=== PATIENT | female | born 1960 | race Caucasian/White ===

== ENCOUNTER 2016-12-30 19:12 | Inpatient (IN) | payer OTHER ==
[~2016-12-30] VITALS: Ht 157.5 cm; Wt 109.8 kg
--- NOTE | ~2016-12-30 | HC ---
[facility] [place] [address] CONSULTATION Name: GURDEEPTAVON Room #: 244-P ADM IN M.R.#: [id number] Admission: 12/30/16 Attend Phys: Eddie Ricks DO Discharge: Date of : 64 Report #: [id number] THIS REPORT FOR: //name// CC: RAYSA physician/PCP Eddie Ricks INDICATION FOR THE PROCEDURE: Low urine output. REASON FOR THE PRESENTATION: Abdominal pain and fluid distention. HISTORY OF PRESENT ILLNESS: A 56-year-old with extensive past medical history including psoriasis, who presented to the Emergency Room complaining of fluid retention. This has been going on with her for the last couple of months. I am not able to get the history from her as she is currently intubated. She has been trying to lose weight with aggressive regimen and low-carb diet. She reported to the Emergency Room that she had significant increase in the abdominal and the lower extremity edema. This has spread proximally. She had an initial evaluation that showed right-sided pleural effusion and a partially obstructing kidney stone. CT also showed a possible left breast mass. The patient then deteriorated and developed acute respiratory failure. Per the chart, she is not aware of any previous chronic kidney disease; however, looking at her kidney numbers when she presented to the Emergency Room, she did have an elevated creatinine with a baseline of around 1.7. Serological markers were completely not remarkable. She did have a urinary tract infection with Pseudomonas. ID is following the patient. Urology was consulted along with wound care. Unfortunately, the patient decompensated while attempting to do a nephrostomy on the right side. She became bradycardic, transcutaneous pacing was initiated. She was intubated and transferred to the ICU. Cardiac echo revealed severe pulmonary hypertension. Creatinine had been rising up to 2.1. I am consulted to manage her acute kidney injury with her anuria. PAST MEDICAL HISTORY: 1. Psoriasis. 2. Pleural effusion. 3. CKD. 4. Status post cholecystectomy. 5. . ALLERGIES: No known drug allergies. SOCIAL HISTORY: No drug or alcohol abuse. FAMILY HISTORY: Significant for heart problem, liver and skin cancer. REVIEW OF SYSTEMS: Unobtainable given the patient's mental status. CURRENT MEDICATIONS: The patient is currently maintained on the following: [address] [address] CONSULTATION Name: TAVON MACKENZIE Arthur Room #: [facility] IN [facility].#: [id number] Admission: 12/30/16 Attend Phys: Eddie Ricks DO Discharge: Date of : 64 Report #: [id number] 1. Amiodarone. 2. Aspirin. 3. Carvedilol. 4. Loratadine. 5. Meropenem. 6. Normal saline. 7. Vancomycin. 8. Methotrexate PHYSICAL EXAMINATION: GENERAL: Intubated. VITAL SIGNS: Blood pressure currently 108/53. She did have extreme hypotensive episodes in the last 48 hours. HEAD AND NECK: ET tube in place. CHEST: Decreased air entry bilaterally. CARDIOVASCULAR: No rub. ABDOMEN: Extensive psoriatic rash and abdominal wall edema. LOWER EXTREMITIES: Extensive psoriatic rash and lower extremity edema. LABORATORY VALUES: Reviewed. White blood cell count is within normal. The pH is normalized; however, she did have severe CO2 narcosis and CO2 retention on the 18. Creatinine is up to 2.1. Serological markers are all negative. ASSESSMENT, IMPRESSION AND PLAN: 1. Acute kidney injury. 2. Severe pulmonary hypertension. 3. Heart block. 4. Hypoperfusion. 5. Respiratory failure. 6. Psoriasis. 7. Obstructing stone. 8. Urinary tract infection. 9. Fluid overload. 10. Elevated liver enzymes. 11. Hypoalbuminemia. 12. Status post chest tube insertion. 13. Unfortunately, this is a very difficult situation given her comorbid conditions. I will attempt Lasix x 1. Volume seems to be optimized; however, she ran into hypotensive episodes yesterday, which contributed to an acute tubular necrosis. 14. Given her heart block, I would be cautious with the beta meseret and with the amiodarone and I will defer the management of those issues to her color artist. 15. I am a little concerned about the obstructing stone in the face of the urinary tract infection. Cultures were obtained and she is currently covered with appropriate antibiotic; however, this stone needs to be addressed as soon [address] [address] CONSULTATION Name: TAVON MACKENZIE Arthur Room #: 244-P [facility] IN M.R.#: [id number] Admission: 12/30/16 Attend Phys: Eddie Ricks DO Discharge: Date of : 64 Report #: [id number] as possible with reattempting of percutaneous nephrostomy tube versus surgical urological intervention. We will discuss with the team members. <ELECTRONICALLY SIGNED> By: Shannan Alvarado MD 01/19/17 1126 [id number] [id number] Shannan Alvarado MD /nt
--- NOTE | ~2016-12-30 | EKG ---
[address] [place] [address] ELECTROCARDIOGRAM REPORT Name: TAVON MACKENZIE Room #: 244- ADM IN M.R.#: [id number] Admission: 12/30/16 Attend Phys: Eddie Ricks DO Discharge: Date of : 64 Report #: [id number] THIS REPORT FOR: //name// [facility] Test Date: 2017-01-12 Test Time: 13:36:02 Pat Name: TAVON MACKENZIE Department: Room: 244 Gender: F Networking Administrator: MECHE : 1960 Requested By: Fabricio Viveros Order Number: [id number] MD: Fabricio Viveros Measurements Intervals [place] Rate: 73 P: 28 PA: 185 QRS: -14 QRSD: 156 T: 26 QT: 460 QTc: 507 Interpretive Statements Sinus rhythm Right bundle branch block Compared to ECG 12/30/2016 20:05:46 Left posterior fascicular block no longer present Inferior Q waves no longer present Q waves no longer present Electronically Signed On 01-12-2017 16:18:03 CDT by Fabricio Viveros [email or web address] <ELECTRONICALLY SIGNED> By: Fabricio Viveros MD 01/12/17 1618 1336 1336 Fabricio Viveros MD /EPI
--- NOTE | ~2016-12-30 | HC ---
[facility] [place] [address] CONSULTATION Name: GURDEEPVIKYTAVON Arthur Room #: 244-P ADM IN M.R.#: [id number] Admission: 12/30/16 Attend Phys: Eddie Ricks DO Discharge: Date of : 64 Report #: [id number] THIS REPORT FOR: //name// CC: RAYSA physician/PCP Eddie Ricks DATE OF SERVICE: 01/08/2017 HISTORY OF PRESENT ILLNESS: A 56-year-old female admitted with acute congestive heart failure exacerbation, anasarca, was noted to have acute renal failure, and pulmonary hypertension. She developed hypoxemic respiratory failure, was noted to have a large right pleural effusion and underwent thoracentesis. She has a right lower lobe infiltrate with atelectasis. She does have morbid obesity. She also has a right renal calculus with mild nephrosis with Nephrology involved. She has been diagnosed with urinary tract infection. She has lymphadenopathy of the mediastinum, left axilla. She has significant generalized weakness and debilitation with medical complexity. We are seeing her in rehabilitation medicine consultation. PAST MEDICAL HISTORY: Includes morbid obesity, asthma as a child, psoriasis. MEDICATIONS: Please see the full medication listing. HABITS: No history of tobacco or alcohol abuse. SOCIAL HISTORY: Lives in a house with her significant other, did not utilize any assistive device, 3 steps in, and does not have a primary care physician. REVIEW OF SYSTEMS: She complains of generalized weakness. No current complaints of chest pain, shortness of breath or abdominal discomfort. She has been needing high oxygen 15 liters per minute nasal cannula. PHYSICAL EXAMINATION: GENERAL: A 56-year-old morbidly obese female in no obvious distress. VITAL SIGNS: Last recorded temperature is 36.8, pulse 74, respirations 20, blood pressure 118/51. NEUROLOGIC: The patient is alert, follows basic 1 step commands. She is on high dose O2, considerable obesity with a large pendulous abdomen. EXTREMITIES: Functional range of motion of the upper and lower extremities with some limited patient due to her pannus. Strength is probably a grade 3+/5. DTRs are 1. She has been needing assistance with functional mobility. She has had some weeping of small amount of serous fluid from the left lower extremity. ASSESSMENT: A 56-year-old female with the following problem list: 1. Medical complexity with generalized debilitation. 2. Acute congestive heart failure exacerbation with right heart failure. [address] [address] CONSULTATION Name: TAVON MACKENZIE Arthur Room #: 244-P [facility] IN [facility]#: [id number] Admission: 12/30/16 Attend Phys: Eddie Ricks DO Discharge: Date of : 64 Report #: [id number] 3. Pulmonary hypertension. 4. Hypercapnic and hypoxemic respiratory failure. She is status post thoracentesis, noted to be of 900 mL. 5. Anasarca. 6. Right renal calculus with Urology involved. There is evidence of mild hydronephrosis. 7. Morbid obesity. 8. Lymphadenopathy of the mediastinum. 9. Morbid obesity. PLAN: Agree with therapy orders as written. Therapy evaluations are underway. We will be glad to follow along with you regarding rehab therapy needs. She may be a candidate for LTAC stay. Insurance issues will need to be worked out as well. We will be glad to follow along with you. <ELECTRONICALLY SIGNED> By: Chino Hernández MD 01/15/17 1105 00 10 Chino Hernández MD /PMT
--- NOTE | ~2016-12-30 | HC ---
[facility] [place] [address] CONSULTATION Name: TAVON MACKENZIE Arthur Room #: 241-P ADM IN M.R.#: [id number] Admission: 12/30/16 Attend Phys: Eddie Ricks DO Discharge: Date of : 64 Report #: [id number] THIS REPORT FOR: //name// CC: [facility] physician/PCP Eddie Islas MD DATE OF SERVICE: 01/05/2017 REFERRING PROVIDER: Bam Islas MD. REASON FOR CONSULTATION: Hypoxemic respiratory failure. CHIEF COMPLAINT: Anasarca. HISTORY OF PRESENT ILLNESS: Our group was asked to evaluate the patient in consultation while hospitalized at [facility], a 56-year-old woman without any noted past pulmonary history, admitted on the of this month with complaints of anasarca, states she had been in her usual state of health, had been doing aggressive weight loss with a low carbohydrate diet, noted significant weight loss and then stopped losing weight then started gaining weight, noted some increasing abdominal edema, lower extremity edema. She states may be over the last 1-2 weeks, however, had significant anasarca and has been on diuretics since admission and workup has included an echocardiogram showing normal LV function, but significant pulmonary hypertension. Also, noted on workup to have only minimal amount of ascites on CT abdomen and pelvis, questionable nephrolithiasis. Ventilation perfusion scan showed matched defects in the right lower lung. Additional workup included a CT scan of the chest, which showed significant right lower lung atelectasis, right pleural effusion and small left pleural effusion, thyroid mass as well as possible axillary lymphadenopathy, possible left breast mass and some mediastinal adenopathy and fatty liver. The patient subsequently has been hypoxemic despite aggressive diuresis since admission and we were asked to evaluate further, currently on 15 liters satting 92% on my evaluation. The patient denies any obstructive sleep apnea, no history of daytime somnolence or snoring. No prior tobacco abuse. 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 Currently unemployed. She does have a history of psoriasis for which she has not seen a physician several years, had been doing xtkr-krd-dndxbck topical therapy. ALLERGIES: None known. PAST MEDICAL HISTORY: Psoriasis. OUTPATIENT MEDICATIONS: None. [address] [address] CONSULTATION Name: GURDEEPTAVON Gibson Room #: 241-P [facility] IN ..#: [id number] Admission: 12/30/16 Attend Phys: Eddie Ricks DO Discharge: Date of : 64 Report #: [id number] PAST SURGICAL HISTORY: Includes , cholecystectomy. SOCIAL HISTORY: Nonsmoker, nondrinker, no significant environmental exposures. Lives with significant other. FAMILY HISTORY: Significant for a mother who had breast cancer. REVIEW OF SYSTEMS: CONSTITUTIONAL: No fevers or chills. ENT: No upper respiratory congestion, rhinorrhea or dysphagia. CARDIOVASCULAR: No chest pains or palpitations, known anasarca. GASTROINTESTINAL: No nausea, vomiting, diarrhea, constipation or abdominal pain. GENITOURINARY: No dysuria, no frequency or hematuria. INTEGUMENT: Psoriasis as noted. MUSCULOSKELETAL: Some lower extremity edema. PHYSICAL EXAMINATION: VITAL SIGNS: Afebrile, pulse 70s, respiratory rate 20, blood pressure 135/70, oxygen saturation 97% on 15 L nasal cannula. GENERAL: This is a morbidly obese, middle-aged woman with obvious anasarca, somewhat somnolent. HEENT: Clear oropharynx. NECK: Supple, no lymphadenopathy. LUNGS: Diminished on the right, but clear otherwise. CARDIOVASCULAR: Regular. No murmurs noted. ABDOMEN: Obese, extensive abdominal wall edema noted, odor coming from intertriginous areas with some erythema in the intertriginous areas. EXTREMITIES: What appears to be chronic edema. INTEGUMENT: Extensive rash consistent with history of psoriasis. LABORATORY DATA: White blood cell count 9000, hemoglobin 13, hematocrit 40, platelet count 282. Sodium 138, potassium 4.8, chloride 90, bicarbonate 39, BUN 31, creatinine 1.7, glucose 125. INR is 1.1. Urinalysis with trace blood, trace leukocyte esterase. Culture with 10,000 colony forming units of Pseudomonas. IMPRESSION: 1. Anasarca of unclear etiology. 2. Severe pulmonary hypertension with findings of right heart failure. 3. Lymphadenopathy in the mediastinum and in the left axilla, unclear etiology. 4. History of psoriasis. 5. Morbid obesity. 6. Possible obstructive sleep apnea. 7. Worsening acute hypoxemic respiratory failure concerning for shunt given [address] [address] CONSULTATION Name: TAVON MACKENZIE Arthur Room #: 241-P [facility] IN ..#: [id number] Admission: 12/30/16 Attend Phys: Eddie Ricks DO Discharge: Date of : 64 Report #: [id number] findings on echo of pulmonary hypertension. RECOMMENDATIONS: 1. Continue with diuresis as tolerated. 2. Check bubble study to see if any significant intracardiac shunt related to pulmonary hypertension. 3. Concern for connective tissue disease related to pulmonary hypertension and/or sleep apnea and/or obesity hypoventilation and/or thyroid related disease or related to possible malignant process. 4. Pleural effusion. 5. Thyroid mass. SUGGESTIONS: 1. Check TSH. 2. Right thoracentesis. 3. Consider nocturnal BiPAP therapy. 4. Continuous oximetry. 5. Transfer to high level care, critical care telemetry. 6. Connective tissue screen, although may be unhelpful given known history of autoimmune disease with the psoriasis. 7. Further workup may include right heart catheterization, may benefit from transfer to the [facility] for further management of severe pulmonary hypertension or right heart failure. 8. Check arterial blood gas. 9. Ultrasound of left breast. 10. Venous Dopplers of lower extremities, although may be difficult due to her significant obesity and edema. 11. We will follow along with you. Thank you for requesting our suggestions. <ELECTRONICALLY SIGNED> By: John Murrell MD 01/28/17 1635 191 John Murrell MD /nt
--- NOTE | ~2016-12-30 | 2DMMODE ---
[address] [address] 2 D/M-MODE ECHOCARDIOGRAM Name: TAVON MACKENZIE Arthur Room #: 353-P [facility] IN M.R.#: [id number] Admission: 12/30/16 Attend Phys: Eddie Ricks, Discharge: Date of : 64 Date of Service: 01/07/17 1534 Report #: [id number] THIS REPORT FOR: //name// APPROVED REPORT Study performed: 01/07/2017 12:07:40 EXAM: Limited 2D, Doppler, and color-flow Echocardiogram Patient Location: Bedside Room #: [facility] Status: routine BSA: 2.43 BP: 104/68 mmHg Other Information Study Quality: Technically Difficult Technically limited study due to body habitus, inability to position patient. Indications Dyspnea Echo Enhancing Agent Indication: Rule out Shunt Agent(s) / Amount(s) Used: Agitated Saline 8 cc Aortic Valve AoV Peak Alexander.: 1.81 m/s AO Peak Gr.: 13.10 mmHg Tricuspid Valve TR Peak Alexander.: 3.76 m/s TR Peak Gr.: 56.47 mmHg Left Ventricle The overall left ventricular systolic function appears normal. Atria Injection of bubbles documented no interatrial shunt. Mitral Valve The mitral valve is normal in structure. Mild mitral regurgitation. [address] [place] [address] 2 D/M-MODE ECHOCARDIOGRAM Name: TAVON MACKENZIE Room #: 353-P ADM IN M.R.#: [id number] Admission: 12/30/16 Attend Phys: Eddie Ricks, Discharge: Date of : 64 Date of Service: 01/07/174 Report #: [id number] Tricuspid Valve The tricuspid valve is normal in structure. Moderate to severe tricuspid regurgitation. Pericardium There is no pericardial effusion. <Conclusion> The overall left ventricular systolic function appears normal. Injection of bubbles documented no interatrial shunt. The tricuspid valve is normal in structure. Moderate to severe tricuspid regurgitation. The mitral valve is normal in structure. Mild mitral regurgitation. There is no pericardial effusion. <ELECTRONICALLY SIGNED> By: Fran Basilio MD 01/07/17 1534 1534 33 Fran Basilio MD /INF
--- NOTE | ~2016-12-30 | HC ---
[facility] [place] [address] CONSULTATION Name: GURDEEPTAVON Arthur Room #: 412-P ADM IN M.R.#: [id number] Admission: 12/30/16 Attend Phys: Eddie Ricks DO Discharge: Date of : 64 Report #: [id number] THIS REPORT FOR: //name// CC: RAYSA physician/PCP Eddie Ricks DATE OF SERVICE: 12/31/2016 CHIEF COMPLAINT: Psoriasis. HISTORY OF PRESENT ILLNESS: This is a 56-year-old female patient who was admitted from the emergency department with abdominal fluid retention. She apparently has been gaining weight for the last month, having some difficulty standing as well as some shortness of breath. She also has a history of psoriasis, which has recently been exacerbated and she has not had health insurance and therefore has not had resources for any medications. She had taken Enbrel in the past with good control, but this was over 10 years ago. PAST MEDICAL HISTORY: Positive for psoriasis as well as a previous cholecystectomy. No known history of coronary artery disease. The patient has a history of asthma as a child. SOCIAL HISTORY: Negative for alcohol or tobacco use. She is not . ALLERGIES: None. REVIEW OF SYSTEMS: CONSTITUTIONAL: The patient denies fever or chills, has had some recent weight gain. ENT: The patient denies earache, nasal drainage, or sore throat. CARDIOVASCULAR: The patient denies chest pain or palpitations. She does have some orthopnea. GASTROINTESTINAL: The patient denies nausea, vomiting, diarrhea, or abdominal pain. ORTHOPEDIC: The patient does note the rash and plaque formation as well as pain and drainage from both lower extremities, more on the left than on the right. Other systems are negative. PHYSICAL EXAMINATION: VITAL SIGNS: At this time include pulse rate of 83, respiratory rate of 18, blood pressure 100/47, and temperature 97.8. GENERAL: This is a chronically ill-appearing female patient who appears to be in minimal distress. HEENT: Head normocephalic. Nose and throat are clear. NECK: Supple. [facility] [address] [place] [address] CONSULTATION Name: TAVON MACKENZIE Room #: 412-P [facility] IN M.R.#: [id number] Admission: 12/30/16 Attend Phys: Eddie Ricks DO Discharge: Date of : 64 Report #: [id number] LUNGS: Clear. ABDOMEN: Soft, obese, nontender. EXTREMITIES: Lower extremities demonstrate easily palpable distal pulses. She has psoriatic type rash on both legs as well as her arms and part of her chest wall. She has thick plaques and some drainage and a little bit of odor especially on the left lower extremity. CLINICAL IMPRESSION: 1. Psoriasis with exacerbation. 2. Congestive heart failure. 3. Morbidly obesity. 4. Chronic kidney disease. RECOMMENDATIONS: At this point in time, we will recommend topical betamethasone to the affected areas twice daily. She will be started on methotrexate and I reviewed this with Dr. Ricks who ordered the methotrexate to start today and then once a week thereafter. She may benefit from a biologic, although this may not be within the range of her affordability at present. All questions have been answered. I appreciate having been asked to see her in consultation. <ELECTRONICALLY SIGNED> By: Christopher Mckeon MD 01/02/17 1113 1822 35 Christopher Mckeon MD /nt
--- NOTE | ~2016-12-30 | HC ---
[facility] [place] [address] CONSULTATION Name: TAVON MACKENZIE Arthur Room #: 412-P ADM IN M.R.#: [id number] Admission: 12/30/16 Attend Phys: Eddie Ricks DO Discharge: Date of : 64 Report #: [id number] THIS REPORT FOR: //name// CC: [facility] physician/PCP Eddie Ricks CHIEF COMPLAINT: Right renal calculi. HISTORY OF PRESENT ILLNESS: The patient is a very pleasant 56-year-old woman who is being seen today at the request of Dr. Ricks for evaluation and management of renal calculi. Specifically, she was admitted with an exacerbation of CHF. She denies history of renal calculi and she is having no flank pain. Additional history indicates that she had a kidney stone 30 years ago while she was and she passed the stone. ALLERGIES: None. MEDICATIONS: Refer to the med reconciliation sheet. ILLNESSES: Include congestive heart failure, anasarca, chronic kidney disease, morbid obesity, right pleural effusion, and psoriasis. SOCIAL HISTORY: Nonsmoker. REVIEW OF SYSTEMS: She denies shortness of breath or chest pain. PHYSICAL EXAMINATION: GENERAL: She is comfortable woman lying in bed. VITAL SIGNS: Temperature is 36.7, pulse 81, respirations 18, blood pressure 116/53. ABDOMEN: Obese. LABORATORY DATA: White count 7.4, hemoglobin 12.6, hematocrit 39.4, platelets 302,000. Sodium is 141, potassium 3.9, chloride 100, CO2 36, BUN 16, creatinine 1.6. Urine is clear yellow, specific gravity is 1.010, pH is 5, negative protein, ketones, nitrites, trace leukocyte esterase. CT scan shows surgically absent gallbladder. There are three clusters of of the right kidney measuring 15 mm and right UPJ stone with mild right-sided pelvic caliectasis. IMPRESSION: Right renal calculi. She is not symptomatic at the present time, although there is mild caliectasis on the right side. PLAN: We will obtain a Lasix renal scan. I explained she may require [facility] [address] [place] [address] CONSULTATION Name: GURDEEPTAVON Room #: 412-P [facility] IN ..#: [id number] Admission: 12/30/16 Attend Phys: Eddie Ricks DO Discharge: Date of : 64 Report #: [id number] intervention, but the acuity of this intervention will be based on the renal scan findings. <ELECTRONICALLY SIGNED> By: Chino Pratt MD 01/02/17 0828 0645 0731 Chino Pratt MD /nt
--- NOTE | ~2016-12-30 | P ---
[facility] [place] [address] PROCEDURE REPORT Name: GURDEEPTAVON Arthur Room #: 362-P [facility] IN M.R.#: [id number] Admission: 12/30/16 Attend Phys: Eddie Ricks DO Discharge: 02/10/17 Date of : 64 Report #: [id number] THIS REPORT FOR: //name// CC: RAYSA physician/PCP Eddie Ricks DATE OF SERVICE: 01/24/2017 PROCEDURE: Fiberoptic bronchoscopy with bronchioalveolar washings. INDICATION: Right main stem mucous plug. PROCEDURE NOTATION: Given the patient's high risk for respiratory decompensation and need for intubation, she was transferred to the ICU to room 241 for additional assistance with care pre and postprocedure. The patient did not want to be intubated if it came to that. The patient was agreeable to proceed with fiberoptic bronchoscopy. X-ray revealed new findings of complete right lung atelectasis, likely due to mucous plug. She received 4% lidocaine nebulized and anesthetized the upper respiratory tract. Once accomplished, she received conscious sedation. A total 4 mg of Versed were titrated during the procedure to provide adequate sedation. Once complete, bronchoscope was advanced through the oral bite block while the patient was on high flow oxygen including 15 liters nasal cannula and 100% face shield. Once vocal cords were visualized, lidocaine 1% was instilled in the vocal cords to provide topical anesthesia. Bronchoscope was then passed in the trachea, 1% lidocaine was instilled in the tracheobronchial tree bilaterally to provide topical anesthesia. Once complete, the airways were surveyed. FINDINGS: Briefly airways were surveyed due to her decompensation. Mainstem, lobar, segmental and subsegmental bronchi were explored. Left-sided structures appeared patent with no significant anatomic variation or significant disease. Right-sided structures revealed complete mucous plugging. This was purged and aspirated including need to remove the bronchoscope on 2 occasions to purge the bronchoscope from mucous plugging within the bronchoscope channel. Several 20 mL aliquots of saline were utilized to flush and aspirate extensive inspissated mucus from the airway. Once complete, airways were patent with no significant disease. The patient was placed on BiPAP post-procedure. No other noted complications. Low oxygen saturation 85% throughout the procedure. The patient placed on BiPAP and noted improvement in x-ray post-procedure. Suggest continue ICU care and airway clearance. <ELECTRONICALLY SIGNED> By: John Murrell MD 02/11/17 1053 1514 0410 John Murrell MD /nt
--- NOTE | ~2016-12-30 | CNG ---
[facility] [place] [address] CYTO-NONGYN REPORT PROCEDURE Name: KARIN SMITH Room #: 238-P ADM IN M.R.#: [id number] Admission: 12/30/16 Date of : 64 Discharge: Report #: [id number] Path Case #: [id number] CYTOPATHOLOGY REPORT COLLECTION DATE: 01/09/2017 RECEIVED DATE: 01/09/2017 SUBMITTING PHYS: Dr. Eddie Ricks OTHER PHYS: Dr. Bam Islas CLINICAL HISTORY: CHF, Anasarca SPECIMEN(S) RECEIVED: A.Pleural fluid, right * * * * * * * * * * * * FINAL DIAGNOSIS: A. Right Pleural fluid: - No malignant cells identified. Reactive mesothelial cells along with moderate acute and chronic inflammation. PATHOLOGIST: Maggy North M.D. REPORT ELECTRONICALLY SIGNED BY: Maggy North M.D. DATE/TIME: 01/10/2017 16:15 * * * * * * * * * * * * GROSS PATHOLOGY: A. Pleural fluid, Right: The specimen is submitted unfixed, labeled "Karin Smith". Received by the Cytology Department is 32 mL of cloudy red fluid. One ThinPrep slide and a formalin fixed cell block were prepared. (lg10.) CHIEF TECHNOLOGIST(S): BHUMI Faye([facility]) INITIAL CPT CODE(S): A; 61966, 77037 Professional services performed by [facility] at [facility] [address], [place] [address] Technical services performed by [facility] at [address] [place] [address]., [address], [place] [address]. [facility] [address] [place] [address], [facility] [address] [place] [address] PHONE: [phone] [facility] [address] [place] [address] CYTO-NONGYN REPORT PROCEDURE Name: KARIN SMITH Room #: 238-P [facility] IN ..#: [id number] Admission: 12/30/16 Date of : 64 Discharge: Report #: [id number] Path Case #: [id number] DIRECTOR: Donte Cotton M.D. * * * END OF REPORT * * *
--- NOTE | ~2016-12-30 | EKG ---
[address] [place] [place] [address] ELECTROCARDIOGRAM REPORT Name: TAVON MACKENZIE Room #: 412-P [facility] IN .R.#: [id number] Admission: 12/30/16 Attend Phys: Eddie Ricks DO Discharge: Date of : 64 Report #: [id number] THIS REPORT FOR: //name// [facility] ED Test Date: 2016-12-30 Test Time: 20:05:46 Pat Name: TAVON MACKENZIE Department: Room: [facility] Gender: F [employer]off Truck Driver: DERREK : 1960 Requested By: Jarad Canas Order Number: [id number] MD: Malik Simms Measurements Intervals [place] Rate: 93 P: 40 [place]: 177 QRS: 118 QRSD: 143 T: 2 QT: 410 QTc: 511 Interpretive Statements Sinus rhythm Probable left atrial enlargement RBBB and LPFB Abnormal inferior Q waves No previous ECG available for comparison Electronically Signed On 12-31-2016 7:45:58 CDT by Malik Simms [email or web address] <ELECTRONICALLY SIGNED> By: Malik Simms MD, [facility] 12/31/16 0745 04 04 Malik iSmms MD, FACC /EPI
--- NOTE | ~2016-12-30 | 2DMMODE ---
[facility] [place] [address] 2 D/M-MODE ECHOCARDIOGRAM Name: GURDEEPTAVON Room #: 412-P [facility] IN .R.#: [id number] Admission: 12/30/16 Attend Phys: Eddie Ricks, Discharge: Date of : 64 Date of Service: 12/31/16 1323 Report #: [id number] THIS REPORT FOR: //name// APPROVED REPORT Study performed: 12/31/2016 11:40:03 EXAM: Comprehensive 2D, Doppler, and color-flow Echocardiogram Patient Location: Echo lab Room #: [facility] Status: routine BSA: 2.43 HR: 100 bpm BP: 107/54 mmHg Rhythm: Tachycardia Other Information Study Quality: Adequate Technically limited study due to morbid obesity. Indications Fluid retention, CHF. Echo Enhancing Agent Indication: Endocardial border delineation Agent(s) / Amount(s) Used: Optison 3 cc 2D Dimensions LVEF(%): 52.97 (>50%) IVSd: 12.25 (7-11mm) LVOT Diam: 22.21 (18-24mm) LVDd: 44.72 mm PWd: 11.63 (7-11mm) Ascending Ao: 32.54 (22-36mm) LVDs: 32.60 (25-40mm) Aortic Root: 28.64 mm Leahy's LVEF: 52.97 % Volumes Left Atrial Volume (Systole) Single Plane 4CH: 49.51 mL Single Plane 2CH: 57.44 mL LA ESV Index: 24.00 mL/m2 Aortic Valve AoV Peak Alexander.: 1.92 m/s AO Peak Gr.: 14.80 mmHg LVOT Max P.24 mmHg LVOT Max V: 1.25 m/s [facility] [place] [place] [address] 2 D/M-MODE ECHOCARDIOGRAM Name: TAVON MACKENZIE Room #: [facility] IN ..#: [id number] Admission: 12/30/16 Attend Phys: Eddie Ricks, Discharge: Date of : 64 Date of Service: 12/31/16 1323 Report #: [id number] JESSICA Vmax: 2.51 cm2 Mitral Valve E/A Ratio: 0.7 MV Decel. Time: 110.37 ms MV E Max Alexander.: 1.15 m/s MV A Alexander.: 1.61 m/s MV PHT: 32.01 ms IVRT: 78.43 ms Pulmonary Valve PV Peak Alexander.: 1.40 m/s PV Peak Gr.: 7.81 mmHg Tricuspid Valve TR Peak Alexander.: 3.91 m/s RAP Estimate: 15.00 mmHg TR Peak Gr.: 61.27 mmHg PA Pressure: 76.00 mmHg Left Ventricle The left ventricle is normal size. There is normal LV segmental wall motion. Mild concentric left ventricular hypertrophy. Left ventricular systolic function is normal. LVEF is 55-60%. Mild diastolic dysfunction is present (impaired relaxation pattern). Right Ventricle Right ventricle is dilated. Unable to assess function due to poor image quality. Atria Left atrium is dilated. Right atrium is dilated. Aortic Valve Aortic valve is mildly calcified. No aortic regurgitation is present. There is no aortic valvular stenosis. Mitral Valve The mitral valve is normal in structure. Mild mitral regurgitation. Tricuspid Valve Moderate to severe tricuspid regurgitation. Severe pulmonary hypertension with an estimated PAP of 76mmHg. Pulmonic Valve The pulmonary valve is normal in structure. [facility] [address] [place] [address] 2 D/M-MODE ECHOCARDIOGRAM Name: TAVON MACKENZIE Arthur Room #: 412-P [facility] IN ..#: [id number] Admission: 12/30/16 Attend Phys: Eddie Ricks, Discharge: Date of : 64 Date of Service: 12/31/16 1323 Report #: [id number] Great Vessels The aortic root is normal in size. The ascending aorta is normal in size. IVC is dilated and collapses <50% with inspiration. Pericardium There is no pericardial effusion. Right pleural effusion noted. <Conclusion> The left ventricle is normal size. Mild concentric left ventricular hypertrophy. LVEF is 55-60%. Mild diastolic dysfunction is present (impaired relaxation pattern). Right ventricle is dilated. Left atrium is dilated. Right atrium is dilated. Aortic valve is mildly calcified. There is no aortic valvular stenosis. Mild mitral regurgitation. Moderate to severe tricuspid regurgitation. Severe pulmonary hypertension with an estimated PAP of 76mmHg. IVC is dilated and collapses <50% with inspiration. There is no pericardial effusion. <ELECTRONICALLY SIGNED> By: Adrian Ludwig MD, FACC 12/31/16 1323 22 22 Adrian Ludwig MD, FACC /INF
--- NOTE | ~2016-12-30 | 2DMMODE ---
[facility] [address] [place] [address] 2 D/M-MODE ECHOCARDIOGRAM Name: GURDEEPTAVON A Room #: 362-P [facility] IN .R.#: [id number] Admission: 12/30/16 Attend Phys: Eddie Ricks, Discharge: Date of : 64 Date of Service: 02/07/17 1054 Report #: [id number] THIS REPORT FOR: //name// APPROVED REPORT Study performed: 02/07/2017 09:34:40 EXAM: Limited 2D, Doppler, and color-flow Echocardiogram with contrast Patient Location: Bedside Room #: [facility] Status: routine BSA: 2.07 BP: 140/89 mmHg Other Information Study Quality: Technically Difficult/Technically Limited Technically limited study due to body habitus, uncooperative patient, inability to position patient. Indications Pulmonary Hypertension Re-evaluate pulmonary HTN. Abbreviated echo on 01/07/17 and complete echo on 12/31/06. 2D Dimensions IVC: 24.00 mm Aortic Valve AoV Peak Alexander.: 1.43 m/s AO Peak Gr.: 8.20 mmHg LVOT Max P.94 mmHg LVOT Max V: 0.99 m/s Mitral Valve E/A Ratio: 0.5 MV Decel. Time: 155.89 ms MV E Max Alexander.: 0.70 m/s MV A Alexander.: 1.28 m/s MV PHT: 45.21 ms Pulmonary Valve PV Peak Alexander.: 1.49 m/s PV Peak Gr.: 8.84 mmHg Tricuspid Valve TR Peak Alexander.: 3.42 m/s RAP Estimate: 10.00 mmHg [facility] [address] [place] [address] 2 D/M-MODE ECHOCARDIOGRAM Name: TAVON MACKENZIE Room #: 362-P ADM IN [facility]#: [id number] Admission: 12/30/16 Attend Phys: Eddie Ricks, Discharge: Date of : 64 Date of Service: 02/07/17 1054 Report #: [id number] TR Peak Gr.: 46.92 mmHg PA Pressure: 57.00 mmHg Left Ventricle Left ventricle is grossly normal size. The overall left ventricular systolic function appears normal. LVEF is 60-65%. Right Ventricle Right ventricle is not well visualized. Atria Left atrium is dilated. Right atrium is not well visualized. Aortic Valve The aortic valve is normal in structure. No aortic regurgitation is noted. There is no aortic valvular stenosis per doppler. Mitral Valve The mitral valve is normal in structure. Mild to moderate mitral regurgitation. No evidence of mitral valve stenosis. Tricuspid Valve The tricuspid valve is normal in structure. Mild to moderate tricuspid regurgitation. PAP is estimated at 57 mmHg. Pulmonic Valve Pulmonic valve is not well visualized. Mild pulmonic regurgitation is noted per doppler. Trace pulmonic regurgitation. Trace to mild pulmonic regurgitation. Mild pulmonic regurgitation. Great Vessels IVC is dilated and collapses >50% with normal respirations. Pericardium No hemodynamically significant pericardial effusion. <Conclusion> Left ventricle is grossly normal size. LVEF is 60-65%. Right ventricle is not well visualized. Left atrium is dilated. Right atrium is not well visualized. The aortic valve is normal in structure. [facility] [address] [place] [address] 2 D/M-MODE ECHOCARDIOGRAM Name: GURDEEPTAVON Room #: 362-[facility] IN .R.#: [id number] Admission: 12/30/16 Attend Phys: Eddie Ricks, Discharge: Date of : 64 Date of Service: 02/07/17 1054 Report #: [id number] The mitral valve is normal in structure. Mild to moderate mitral regurgitation. The tricuspid valve is normal in structure. Mild to moderate tricuspid regurgitation. PAP is estimated at 57 mmHg. Pulmonic valve is not well visualized. No hemodynamically significant pericardial effusion. <ELECTRONICALLY SIGNED> By: Fran Basilio MD 02/07/17 1054 105 Fran Basilio MD /INF
--- NOTE | ~2016-12-30 | HC ---
[facility] [place] [address] CONSULTATION Name: GURDEEPVIKYTAVON Arthur Room #: 244-P ADM IN M.R.#: [id number] Admission: 12/30/16 Attend Phys: Eddie Ricks DO Discharge: Date of : 64 Report #: [id number] THIS REPORT FOR: //name// CC: RAYSA physician/PCP Eddie Ricks REASON FOR CONSULTATION: I was asked to evaluate concerning multisystem failure with pneumonia and right ureteral obstruction. HISTORY OF PRESENT ILLNESS: The patient was a 56-year-old with underlying psoriasis, morbid obesity, who presented on 12/30/2016 with right-sided flank pain and peripheral edema. She had right nephrolithiasis with partial obstruction of the ureter. She had a large right pleural effusion with associated infiltrate and atelectasis. Also, had a left breast mass and mediastinal adenopathy. She has had multiple thoracenteses on the right, now has a chest tube in place. Remained with an indwelling Guerra catheter. Also, has a rectal tube in place. Today, attempted a right nephrostomy tube and the patient developed complete heart block. Attempted temporary pacer failed and she has an external pacer on. Heart rate now is back to normal sinus rhythm. Hemodynamically otherwise has been stable. She has become anuric over the last 24 hours. Creatinine is raised up to 1.9 as of early this morning. She developed respiratory failure, now is intubated on FIO2 of 70%. Minimal tracheal secretions. We have no sputum cultures today. She has been on Zosyn for right lower lobe pneumonia. Thoracentesis as identified, transudative effusions. ALLERGIES: None. MEDICATIONS: Include vancomycin and meropenem that was started today. She is on propofol, morphine, Lasix twice a day, amiodarone, trazodone, loratadine, methotrexate, carvedilol, aspirin, and subcutaneous heparin. PAST MEDICAL HISTORY: Psoriasis, morbid obesity, cholecystectomy, , asthma as a child. FAMILY HISTORY: Skin cancer, liver cancer, breast cancer, ovarian cancer. SOCIAL HISTORY: Nonsmoker, no significant alcohol intake. No HIV risks identified. REVIEW OF SYSTEMS: The patient was unable to give any details. PHYSICAL EXAMINATION: VITAL SIGNS: She was afebrile and hemodynamically stable. GENERAL: She was sedated. On an FIO2 of 70%. Orally intubated. Left wrist ____ line and peripheral IV is in place. Indwelling Guerra catheter and a rectal tube. Right chest tube. [facility] [address] [place] [address] CONSULTATION Name: TAVON MACKENZIE Room #: 244-P [facility] IN [facility]#: [id number] Admission: 12/30/16 Attend Phys: Eddie Ricks DO Discharge: Date of : 64 Report #: [id number] LUNGS: Consolidation in the right base posteriorly. HEART: Regular, without murmur, gallop or rub. ABDOMEN: Obese with a very large abdominal pannus. Abdomen was firm throughout. It was tender. She had what appeared to be a small umbilical hernia. She had extensive abdominal pannus. SKIN: She had large plaques of psoriasis. LABORATORY STUDIES: Chest x-ray, right pleural effusion with associated infiltrate, right chest pigtail catheter, atelectasis on both bases with vascular congestion. Blood, urine and sputum cultures are pending. Initial urine culture showed few colonies Pseudomonas aeruginosa from her urine. From early this morning, sodium 141, potassium 3.8, bicarbonate 38, BUN 43, creatinine 1.9, hemoglobin 12.2, white count 6.5, platelet count 208,000. No differential was obtained. Urinalysis from this evening 3+ protein, 3+ blood, nitrite positive, 0-5 wbc's, many rbc's, few bacteria. ABGs on 100% FiO2, pO2 of 127, pCO2 of 62, pH 7.3, lactate 1.7. IMPRESSION: A 56-year-old immunosuppressed on methotrexate for psoriasis with multisystem failure, congestive heart failure, large right pleural effusion with associated right lower lobe infiltrate, left breast mass with mediastinal adenopathy, right-sided kidney stones with ureteral obstruction, antibiotic-associated diarrhea, now anuric with episode of complete heart block. Her echocardiogram showed normal ejection fraction, sauvrkcl-cr-gcuiki tricuspid regurgitation, mild mitral regurgitation. Thus far, her infectious issues appear more pulmonary. RECOMMENDATIONS: Repeating cultures, blood, urine, sputum. Continue broad antibiotic coverage. Repeat chemistry. Push diuresis. Central venous catheter to establish central venous pressure. Nephrology consultation. Urology is following and will assist with placement of nephrostomy tube if possible. <ELECTRONICALLY SIGNED> By: Jarad Ferraro MD 01/12/17 0904 2203 2312 Jarad Ferraro MD /nt
--- NOTE | ~2016-12-30 | CNG ---
[facility] [place] [address] CYTO-NONGYN REPORT PROCEDURE Name: KARIN SMITH Room #: 241-P ADM IN M.R.#: [id number] Admission: 12/30/16 Date of : 64 Discharge: Report #: [id number] Path Case #: [id number] CYTOPATHOLOGY REPORT COLLECTION DATE: 01/24/2017 RECEIVED DATE: 01/25/2017 SUBMITTING PHYS: Dr. John Murrell OTHER PHYS: Dr. Eddie Ricks CLINICAL HISTORY: CHF. SPECIMEN(S) RECEIVED: A.Bronchoalveolar lavage, NOS * * * * * * * * * * * * FINAL DIAGNOSIS: A. Bronchoalveolar lavage, NOS: - No malignant cells identified. - Reactive bronchial epithelial cells, alveolar macrophages, squamous cells and bacteria identified. PATHOLOGIST: Maggy North M.D. REPORT ELECTRONICALLY SIGNED BY: Maggy North M.D. DATE/TIME: 01/28/2017 16:29 * * * * * * * * * * * * GROSS PATHOLOGY: A. Bronchoalveolar lavage, NOS: The specimen is submitted unfixed, labeled "Karin Smith". Received by the Cytology Department is 10 mL of cloudy pink fluid. One ThinPrep slide was prepared. (clt 01.25.2017) BUSINESS SERVICES REPRESENTATIVE(S): BHUMI Hernández([facility]) INITIAL CPT CODE(S): A; 59949 Professional services performed by [facility] at [address] [place] , [place] [address] Technical services performed by [facility] at [address] [place] [address]., [address], [place] [address]. [facility] [address] [place] [address], [address] [place] [address] PHONE: [phone] [facility] [address] [place] [address] CYTO-NONGYN REPORT PROCEDURE Name: KARIN SMITH Room #: 241-P ADM IN M.R.#: [id number] Admission: 12/30/16 Date of : 64 Discharge: Report #: [id number] Path Case #: [id number] DIRECTOR: Donte Cotton M.D. * * * END OF REPORT * * *
--- NOTE | ~2016-12-30 | CNG ---
[facility] [place] [address] CYTO-NONGYN REPORT PROCEDURE Name: KARIN SMITH Room #: 353-P ADM IN M.R.#: [id number] Admission: 12/30/16 Date of : 64 Discharge: Report #: [id number] Path Case #: [id number] CYTOPATHOLOGY REPORT COLLECTION DATE: 01/07/2017 RECEIVED DATE: 01/07/2017 SUBMITTING PHYS: Dr. John Murrell OTHER PHYS: Dr. Eddie Ricks CLINICAL HISTORY: CHF anasarca SPECIMEN(S) RECEIVED: A.Pleural fluid, right * * * * * * * * * * * * FINAL DIAGNOSIS: A. Pleural fluid, right: - No malignant cells identified. -Sparsely cellular specimen consisting of reactive mesothelial cells and scattered inflammatory cells. PATHOLOGIST: Hiren Hu M.D. REPORT ELECTRONICALLY SIGNED BY: Hiren Hu M.D. DATE/TIME: 01/08/2017 10:32 * * * * * * * * * * * * GROSS PATHOLOGY: A. Pleural fluid, right: The specimen is submitted unfixed, labeled "Karin Smith". Received by the Cytology Department is 29 mL of cloudy yellow fluid. One ThinPrep slide and a formalin fixed cell block were prepared. (lg01.07.2017) CAMPGROUND CLEANING ATTENDANT(S): BHUMI Hernández([facility]) INITIAL CPT CODE(S): A; 16687, 45356 Professional services performed by [facility] at [facility] [address], [place] [address] Technical services performed by [facility] at [address] [place] [address]., [address], [place] [address]. [facility] [address] [place] [address], [facility] [address] [place] [address] [facility] [address] [place] [address] CYTO-NONGYN REPORT PROCEDURE Name: KARIN SMITH Room #: 353-P ADM IN M.R.#: [id number] Admission: 12/30/16 Date of : 64 Discharge: Report #: [id number] Path Case #: [id number] PHONE: [phone] DIRECTOR: Donte Cotton M.D. * * * END OF REPORT * * *
--- NOTE | ~2016-12-30 | EKG ---
[place] [address] [facility] [place] [address] ELECTROCARDIOGRAM REPORT Name: GURDEEPTAVON A Room #: 244- ADM IN M.R.#: [id number] Admission: 12/30/16 Attend Phys: Eddie Ricks DO Discharge: Date of : 64 Report #: [id number] THIS REPORT FOR: //name// [facility] Test Date: 2017-01-13 Test Time: 13:03:57 Pat Name: TAVON MACKENZIE Department: Room: 244 Gender: F Clinical Project Assistant: carley : 1960 Requested By: Fabricio Viveros Order Number: [id number] MD: Malik Simms Measurements Intervals [place] Rate: 68 P: 38 [place]: 188 QRS: 7 QRSD: 156 T: 32 QT: 476 QTc: 507 Interpretive Statements Sinus rhythm Right bundle branch block Compared to ECG 01/12/2017 13:36:02 No significant changes Electronically Signed On 01-13-2017 17:11:05 CDT by Malik Simms [email or web address] <ELECTRONICALLY SIGNED> By: Malik Simms MD, [facility] 01/13/17 171 02 02 Malik Simms MD, [facility] /EPI
[2016-12-30 19:15] VITALS: BP 136/70
[2016-12-30 20:29] LABS: URINE BILIRUBIN NEGATIVE (Negative); URINE BLOOD TRACE (Negative); URINE COLOR YELLOW; URINE GLUCOSE-RANDOM* NEGATIVE (Negative); URINE KETONES NEGATIVE (Negative); URINE PROTEIN (DIPSTICK) NEGATIVE (Negative); URINE UROBILINOGEN 0.2 E.U./dl (0.2-1.0)
[2016-12-30 20:33] LABS: URINE LEUKOCYTES-REFLEX TRACE (Negative)
[2016-12-30 21:17] LABS: HEMATOCRIT 43.1 % (37.0-47.0); HEMOGLOBIN 13.7 gm/dL (12.0-15.0); MCH 29.2 pg (26.0-34.0); MCHC 31.9 g/dL (28.0-37.0); MCV 91.6 fL (80.0-100.0); PLATELET COUNT 325 thou/uL (150-400); RDW 16.4 % (10.5-14.5); WBC 11.3 thou/uL (4.0-11.0)
[2016-12-30 21:21] LABS: ABG SAMPLE TYPE VENOUS; BE(vivo) 5.3 mmol/L (-2 to +3); HCO3 31.7 mmol/L (22.0-26.0); LACTATE 2.57 mmol/L (0.5-2.0); O2(CT) 13.1 mL/dL (15.0-23.0); PO2 VENOUS 34.9 mmHg (35.0-45.0); STICK SITE RFOREARM; sO2 VENOUS 65.6 % (65.0-85.0); tCO2 33.4 mmol/L (24.0-30.0)
[2016-12-30 21:22] LABS: MANUAL DIFF YES
[2016-12-30 21:31] LABS: ANION GAP 4 mmol/L (7-16); BUN 18 mg/dL (7-18); CHLORIDE 100 mmol/L (98-107); CO2 35 mmol/L (21-32); CREATININE 1.7 mg/dL (0.6-1.0); GLUCOSE 96 mg/dL (74-106); SODIUM 139 mmol/L (136-145)
[2016-12-30 21:37] LABS: ALKALINE PHOSPHATASE 125 U/L (46-116); SGOT 15 U/L (15-37); SGPT 5 U/L (30-65); TOTAL BILIRUBIN 0.6 mg/dL (<0.1-1.0); TOTAL PROTEIN 7.8 g/dL (6.4-8.2); TROPONIN-I < 0.04 ng/mL (<0.04-0.07)
[2016-12-30 21:49] LABS: APTT 24.9 Seconds (24.5-32.8); INR 1.1; PROTIME 11.5 Seconds (9.3-11.4)
[2016-12-30 22:03] LABS: ABSOLUTE NEUTROPHILS 8.9 thou/uL (1.4-8.2); ANISOCYTOSIS 1+; LARGE PLATELETS OCCASIONAL; TOTAL CELL COUNT 100
[2016-12-30 23:15] VITALS: BP 117/75
[2016-12-30 23:16] VITALS: BP 154/46
[2016-12-31 06:06] LABS: HEMATOCRIT 39.7 % (37.0-47.0); HEMOGLOBIN 12.5 gm/dL (12.0-15.0); MCH 29.1 pg (26.0-34.0); MCHC 31.5 g/dL (28.0-37.0); MCV 92.3 fL (80.0-100.0); RBC 4.3 mil/uL (4.20-5.00); RDW 16.6 % (10.5-14.5); WBC 9.5 thou/uL (4.0-11.0)
[2016-12-31 06:19] VITALS: BP 132/51
[2016-12-31 06:23] LABS: CALCIUM 8.7 mg/dL (8.5-10.1); CREATININE 1.6 mg/dL (0.6-1.0); POTASSIUM 3.9 mmol/L (3.5-5.1)
[2016-12-31 09:04] VITALS: BP 107/54
[2016-12-31 16:00] VITALS: BP 100/47
[2016-12-31 19:42] VITALS: BP 99/48
[2017-01-01 00:22] VITALS: BP 118/57
[2017-01-01 05:44] VITALS: BP 116/53
[2017-01-01 06:32] LABS: HEMATOCRIT 39.4 % (37.0-47.0); HEMOGLOBIN 12.6 gm/dL (12.0-15.0); MCH 29.5 pg (26.0-34.0); MCV 92.1 fL (80.0-100.0); PLATELET COUNT 302 thou/uL (150-400); RBC 4.28 mil/uL (4.20-5.00); RDW 16.7 % (10.5-14.5); WBC 7.4 thou/uL (4.0-11.0)
[2017-01-01 06:39] LABS: MANUAL DIFF YES
[2017-01-01 06:52] LABS: CALCIUM 8.4 mg/dL (8.5-10.1); CREATININE 1.5 mg/dL (0.6-1.0); POTASSIUM 4.1 mmol/L (3.5-5.1)
[2017-01-01 07:47] VITALS: BP 114/50
[2017-01-01 08:14] LABS: ABSOLUTE NEUTROPHILS 5.4 thou/uL (1.4-8.2); ANISOCYTOSIS SLIGHT; POIKILOCYTOSIS SLIGHT; TOTAL CELL COUNT 100
[2017-01-01 16:08] VITALS: BP 127/59
[2017-01-01 20:00] VITALS: BP 109/54
[2017-01-02 04:00] VITALS: BP 107/58
[2017-01-02 06:00] LABS: HEMATOCRIT 40.1 % (37.0-47.0); HEMOGLOBIN 12.7 gm/dL (12.0-15.0); MCH 29.6 pg (26.0-34.0); MCHC 31.8 g/dL (28.0-37.0); MCV 93.1 fL (80.0-100.0); RBC 4.3 mil/uL (4.20-5.00); RDW 16.7 % (10.5-14.5); WBC 8.2 thou/uL (4.0-11.0)
[2017-01-02 06:12] LABS: CALCIUM 8.6 mg/dL (8.5-10.1); CREATININE 1.6 mg/dL (0.6-1.0); POTASSIUM 3.8 mmol/L (3.5-5.1)
[2017-01-02 08:32] VITALS: BP 104/47
[2017-01-02 16:41] VITALS: BP 119/58
[2017-01-02 20:05] VITALS: BP 100/39
[2017-01-03 04:30] VITALS: BP 116/39
[2017-01-03 08:00] VITALS: BP 105/48
[2017-01-03 09:56] LABS: CALCIUM 8.6 mg/dL (8.5-10.1); CREATININE 1.4 mg/dL (0.6-1.0); POTASSIUM 4.2 mmol/L (3.5-5.1)
[2017-01-03 17:00] VITALS: BP 114/57
[2017-01-03 20:00] VITALS: BP 133/69
[2017-01-04 04:00] VITALS: BP 141/75
[2017-01-04 05:11] LABS: HEMATOCRIT 42.6 % (37.0-47.0); HEMOGLOBIN 13.5 gm/dL (12.0-15.0); MCH 29.4 pg (26.0-34.0); MCHC 31.8 g/dL (28.0-37.0); MCV 92.4 fL (80.0-100.0); RBC 4.61 mil/uL (4.20-5.00); RDW 16.8 % (10.5-14.5); WBC 8.9 thou/uL (4.0-11.0)
[2017-01-04 05:18] LABS: CREATININE 1.5 mg/dL (0.6-1.0); POTASSIUM 4.1 mmol/L (3.5-5.1)
[2017-01-04 08:00] VITALS: BP 101/60
[2017-01-04 16:00] VITALS: BP 117/55
[2017-01-04 20:38] VITALS: BP 128/58
[2017-01-05 00:22] VITALS: BP 96/48
[2017-01-05 04:05] VITALS: BP 100/47
[2017-01-05 06:59] LABS: HEMATOCRIT 39.9 % (37.0-47.0); HEMOGLOBIN 12.5 gm/dL (12.0-15.0); MCH 29.1 pg (26.0-34.0); MCHC 31.3 g/dL (28.0-37.0); MCV 93.1 fL (80.0-100.0); RBC 4.28 mil/uL (4.20-5.00); RDW 16.8 % (10.5-14.5); WBC 8.9 thou/uL (4.0-11.0)
[2017-01-05 07:08] LABS: CALCIUM 9.2 mg/dL (8.5-10.1); CREATININE 1.7 mg/dL (0.6-1.0); POTASSIUM 4.8 mmol/L (3.5-5.1)
[2017-01-05 08:40] VITALS: BP 99/43
[2017-01-05 17:07] LABS: ABG SAMPLE TYPE ARTERIAL; BE(vivo) 9.9 mmol/L (-2 to +3); HCO3 38.8 mmol/L (22.0-26.0); LACTATE 2.13 mmol/L (0.5-2.0); O2(CT) 18.7 mL/dL (15.0-23.0); O2Hb 92.1 % (92.0-98.0); pH 7.343 (7.360-7.450); sO2 93.2 % (92.0-98.0); tCO2 41.1 mmol/L (24.0-30.0)
[2017-01-05 17:08] LABS: PCO2 73.1 mmHg (35.0-45.0); STICK SITE L.RADIAL
[2017-01-05 19:31] VITALS: BP 118/67
[2017-01-06 03:50] VITALS: BP 113/58
[2017-01-06 07:00] VITALS: BP 122/62
[2017-01-06 09:31] LABS: INR 1.1; PROTIME 10.9 Seconds (9.3-11.4)
[2017-01-06 09:36] LABS: CALCIUM 8.6 mg/dL (8.5-10.1); CREATININE 1.7 mg/dL (0.6-1.0); POTASSIUM 4.6 mmol/L (3.5-5.1)
[2017-01-06 11:21] LABS: ABG SAMPLE TYPE ARTERIAL; BE(vivo) 10.6 mmol/L (-2 to +3); HCO3 39.5 mmol/L (22.0-26.0); LACTATE 1.88 mmol/L (0.5-2.0); O2(CT) 19.1 mL/dL (15.0-23.0); O2Hb 96.7 % (92.0-98.0); PCO2 74.6 mmHg (35.0-45.0); STICK SITE R.RADIAL; pH 7.342 (7.360-7.450); sO2 98.2 % (92.0-98.0); tCO2 41.8 mmol/L (24.0-30.0)
[2017-01-06 11:23] LABS: Pressure Support 10 cm H20; VDS BIPAP SPONT TIMED cc
[2017-01-06 12:23] VITALS: BP 108/53
[2017-01-06 15:08] VITALS: BP 113/58
[2017-01-06 15:24] LABS: HEMOGLOBIN 12.5 gm/dL (12.0-15.0); MCHC 31.3 g/dL (28.0-37.0); MCV 92.7 fL (80.0-100.0); PLATELET COUNT 244 thou/uL (150-400); RBC 4.32 mil/uL (4.20-5.00); RDW 16.7 % (10.5-14.5); WBC 6.3 thou/uL (4.0-11.0)
[2017-01-06 15:25] LABS: MANUAL DIFF YES
[2017-01-06 15:55] LABS: TOTAL CELL COUNT 100
[2017-01-06 15:56] LABS: ANISOCYTOSIS 1+
[2017-01-06 19:00] VITALS: BP 101/55
[2017-01-07 04:55] LABS: HEMATOCRIT 39.8 % (37.0-47.0); HEMOGLOBIN 12.6 gm/dL (12.0-15.0); MCH 29.4 pg (26.0-34.0); MCHC 31.6 g/dL (28.0-37.0); MCV 93.1 fL (80.0-100.0); RBC 4.28 mil/uL (4.20-5.00); RDW 16.6 % (10.5-14.5); WBC 5.4 thou/uL (4.0-11.0)
[2017-01-07 05:09] LABS: CALCIUM 9.2 mg/dL (8.5-10.1); CREATININE 1.6 mg/dL (0.6-1.0); POTASSIUM 4.5 mmol/L (3.5-5.1)
[2017-01-07 05:10] VITALS: BP 120/61
[2017-01-07 08:00] VITALS: BP 104/68
[2017-01-07 11:40] VITALS: BP 115/63
[2017-01-07 12:35] LABS: CLARITY CLOUDY; COLOR YELLOW; TOTAL VOLUME 62 mL
[2017-01-07 13:02] LABS: BF NUCLEATED CELLS 279; BF RBC 1791
[2017-01-07 13:05] LABS: MANUAL DIFF YES
[2017-01-07 14:20] LABS: BF MACROPHAGE 18; BF NEUTROPHILS 34
[2017-01-07 20:00] VITALS: BP 118/61
[2017-01-08 04:00] VITALS: BP 124/57
[2017-01-08 08:15] VITALS: BP 118/51
[2017-01-08 14:10] LABS: BODY FLUID ALBUMIN 1.8 g/dL (()); BODY FLUID AMYLASE 24 U/L (()); BODY FLUID GLUCOSE 103 mg/dL (()); BODY FLUID LDH 77 IU/L (()); BODY FLUID PROTEIN 3.6 g/dL (())
[2017-01-08 15:55] VITALS: BP 95/41
[2017-01-08 16:08] LABS: c-ANCA <1:20 titer (Neg:<1:20); p-ANCA <1:20 titer (Neg:<1:20)
[2017-01-08 19:45] VITALS: BP 116/56
[2017-01-09] VITALS (16 sets, daily range): BP systolic 89–157; BP diastolic 0–99
[2017-01-09 06:38] LABS: HEMATOCRIT 43.1 % (37.0-47.0); HEMOGLOBIN 13.2 gm/dL (12.0-15.0); MCHC 30.8 g/dL (28.0-37.0); MCV 94.4 fL (80.0-100.0); RBC 4.56 mil/uL (4.20-5.00)
[2017-01-09 06:47] LABS: CALCIUM 8.7 mg/dL (8.5-10.1); CREATININE 1.7 mg/dL (0.6-1.0); POTASSIUM 4.4 mmol/L (3.5-5.1)
[2017-01-09 11:23] LABS: FIBRINOGEN 353.1 mg/dL (210-360); INR 1.1
[2017-01-09 13:21] LABS: MANUAL DIFF YES
[2017-01-09 13:22] LABS: CLARITY TURBID; COLOR RED; TOTAL VOLUME 60 mL
[2017-01-09 13:23] LABS: BF NUCLEATED CELLS 1052; BF RBC 83693
[2017-01-09 13:53] LABS: BF MACROPHAGE 49; BF NEUTROPHILS 33
[2017-01-09 19:17] LABS: ABG SAMPLE TYPE ARTERIAL; BE(vivo) 6.8 mmol/L (-2 to +3); HCO3 44.2 mmol/L (22.0-26.0); LACTATE 2.04 mmol/L (0.5-2.0); O2(CT) 18.8 mL/dL (15.0-23.0); PCO2 168.9 mmHg (35.0-45.0); PO2 67.8 mmHg (80.0-100.0); STICK SITE L.BRACHIAL; pH 7.036 (7.360-7.450); sO2 80.5 % (92.0-98.0); tCO2 49.4 mmol/L (24.0-30.0)
[2017-01-09 20:31] LABS: HEMOGLOBIN 13.5 gm/dL (12.0-15.0); MANUAL DIFF YES; MCH 29.5 pg (26.0-34.0); MCHC 30.6 g/dL (28.0-37.0); MCV 96.4 fL (80.0-100.0); PLATELET COUNT 252 thou/uL (150-400); RBC 4.56 mil/uL (4.20-5.00); RDW 17.3 % (10.5-14.5); WBC 8.5 thou/uL (4.0-11.0)
[2017-01-09 20:40] LABS: CALCIUM 9.4 mg/dL (8.5-10.1); CREATININE 1.9 mg/dL (0.6-1.0); POTASSIUM 4.4 mmol/L (3.5-5.1)
[2017-01-09 20:46] LABS: ALBUMIN 2.5 g/dL (3.4-5.0); TOTAL BILIRUBIN 0.7 mg/dL (<0.1-1.0); TOTAL PROTEIN 7.1 g/dL (6.4-8.2)
[2017-01-09 20:53] LABS: ABSOLUTE NEUTROPHILS 7.7 thou/uL (1.4-8.2); NUCLEATED RBCS 1 /100WBC; TOTAL CELL COUNT 100
[2017-01-09 20:54] LABS: ANISOCYTOSIS 1+
[2017-01-09 23:20] LABS: ABG SAMPLE TYPE ARTERIAL; BE(vivo) 6.9 mmol/L (-2 to +3); LACTATE 1.89 mmol/L (0.5-2.0); O2(CT) 18.8 mL/dL (15.0-23.0); O2Hb 93.8 % (92.0-98.0); PO2 82.1 mmHg (80.0-100.0); sO2 93.3 % (92.0-98.0); tCO2 40.8 mmol/L (24.0-30.0)
[2017-01-09 23:23] LABS: STICK SITE R.RADIAL; pH 7.234 (7.360-7.450)
[2017-01-09 23:24] LABS: ABG COMMENT BIPAP 16/8; Pressure Support 8 cm H20; TIDAL VOLUME 500 ml
[2017-01-10] VITALS (40 sets, daily range): BP systolic 82–134; BP diastolic 43–71
[2017-01-10 04:54] LABS: ABG SAMPLE TYPE ARTERIAL; BE(vivo) 6.2 mmol/L (-2 to +3); HCO3 35.7 mmol/L (22.0-26.0); LACTATE 1.86 mmol/L (0.5-2.0); O2(CT) 18.3 mL/dL (15.0-23.0); PO2 67.6 mmHg (80.0-100.0); sO2 90.5 % (92.0-98.0); tCO2 38.1 mmol/L (24.0-30.0)
[2017-01-10 05:01] LABS: PCO2 76.4 mmHg (35.0-45.0); STICK SITE L.RADIAL; pH 7.288 (7.360-7.450)
[2017-01-10 05:02] LABS: Pressure Support 12 cm H20
[2017-01-10 05:16] LABS: HEMOGLOBIN 13.1 gm/dL (12.0-15.0); MCH 29.8 pg (26.0-34.0); MCHC 31.1 g/dL (28.0-37.0); MCV 95.7 fL (80.0-100.0); RBC 4.39 mil/uL (4.20-5.00); WBC 7.2 thou/uL (4.0-11.0)
[2017-01-10 05:23] LABS: CALCIUM 8.9 mg/dL (8.5-10.1); CREATININE 1.9 mg/dL (0.6-1.0); POTASSIUM 4.3 mmol/L (3.5-5.1)
[2017-01-10 12:11] LABS: BODY FLUID ALBUMIN 1.6 g/dL (()); BODY FLUID AMYLASE 24 U/L (()); BODY FLUID GLUCOSE 118 mg/dL (()); BODY FLUID LDH 151 IU/L (()); BODY FLUID PROTEIN 3.7 g/dL (())
[2017-01-11] VITALS (23 sets, daily range): BP systolic 81–134; BP diastolic 39–83
[2017-01-11 05:14] LABS: HEMOGLOBIN 12.2 gm/dL (12.0-15.0); MCHC 30.5 g/dL (28.0-37.0); RBC 4.21 mil/uL (4.20-5.00); RDW 16.9 % (10.5-14.5); WBC 6.5 thou/uL (4.0-11.0)
[2017-01-11 05:22] LABS: CALCIUM 8.6 mg/dL (8.5-10.1); CREATININE 1.9 mg/dL (0.6-1.0); POTASSIUM 3.8 mmol/L (3.5-5.1)
[2017-01-11 17:10] LABS: ABG SAMPLE TYPE ARTERIAL; HCO3 33.6 mmol/L (22.0-26.0); O2Hb 97.1 % (92.0-98.0); PCO2 62.4 mmHg (35.0-45.0); STICK SITE LINE; pH 7.349 (7.360-7.450); sO2 98.3 % (92.0-98.0); tCO2 35.5 mmol/L (24.0-30.0)
[2017-01-11 17:11] LABS: TIDAL VOLUME 450 ml
[2017-01-11 19:04] LABS: URINE BILIRUBIN NEGATIVE (Negative); URINE BLOOD 3+ (Negative); URINE GLUCOSE-RANDOM* NEGATIVE (Negative); URINE KETONES NEGATIVE (Negative); URINE PROTEIN (DIPSTICK) 3+ (Negative); URINE SPECIFIC GRAVITY 1.025 (1.003-1.035); URINE UROBILINOGEN 0.2 E.U./dl (0.2-1.0)
[2017-01-11 19:11] LABS: URINE LEUKOCYTES-REFLEX TRACE (Negative)
[2017-01-11 19:12] LABS: URINE COLOR BROWN
[2017-01-11 19:13] LABS: CASTS None Seen /LPF (None Seen); SQUAMOUS 0-3 Few /LPF (0-3)
[2017-01-11 19:14] LABS: URINE RBC >20 Many /HPF (0-2)
[2017-01-11 19:15] LABS: URINE WBC-REFLEX 0-5 Rare /HPF (0-5)
[2017-01-11 22:19] LABS: CALCIUM 8.5 mg/dL (8.5-10.1); CREATININE 1.9 mg/dL (0.6-1.0); POTASSIUM 3.6 mmol/L (3.5-5.1)
[2017-01-12 00:01] VITALS: BP 101/47
[2017-01-12 02:01] VITALS: BP 101/47
[2017-01-12 04:04] VITALS: BP 108/53
[2017-01-12 04:40] LABS: HEMATOCRIT 37.1 % (37.0-47.0); HEMOGLOBIN 11.7 gm/dL (12.0-15.0); MCH 29.4 pg (26.0-34.0); MCHC 31.5 g/dL (28.0-37.0); MCV 93.3 fL (80.0-100.0); PLATELET COUNT 187 thou/uL (150-400); RBC 3.98 mil/uL (4.20-5.00); RDW 16.9 % (10.5-14.5); WBC 7.2 thou/uL (4.0-11.0)
[2017-01-12 04:49] LABS: MANUAL DIFF YES
[2017-01-12 04:59] LABS: CALCIUM 8.4 mg/dL (8.5-10.1); CREATININE 2.1 mg/dL (0.6-1.0); MAGNESIUM 1.8 mg/dL (1.8-2.4); POTASSIUM 3.7 mmol/L (3.5-5.1); TOTAL BILIRUBIN 0.6 mg/dL (<0.1-1.0); TOTAL PROTEIN 6.1 g/dL (6.4-8.2)
[2017-01-12 05:14] LABS: ABG SAMPLE TYPE ARTERIAL; BE(vivo) 8.2 mmol/L (-2 to +3); LACTATE 1.69 mmol/L (0.5-2.0); O2(CT) 17.6 mL/dL (15.0-23.0); O2Hb 96.2 % (92.0-98.0); PCO2 59.2 mmHg (35.0-45.0); PO2 99.7 mmHg (80.0-100.0); sO2 97.3 % (92.0-98.0); tCO2 36.8 mmol/L (24.0-30.0)
[2017-01-12 05:15] LABS: ABG COMMENT AC20 450 +5 70%; STICK SITE LINE; TIDAL VOLUME 450 ml
[2017-01-12 06:00] LABS: ABSOLUTE NEUTROPHILS 6.3 thou/uL (1.4-8.2); ANISOCYTOSIS 1+; TOTAL CELL COUNT 100
[2017-01-13 05:16] LABS: ABG SAMPLE TYPE ARTERIAL; BE(vivo) 7.3 mmol/L (-2 to +3); HCO3 33.4 mmol/L (22.0-26.0); LACTATE 1.71 mmol/L (0.5-2.0); O2Hb 95.5 % (92.0-98.0); PCO2 53.5 mmHg (35.0-45.0); PO2 88.2 mmHg (80.0-100.0); STICK SITE LINE; TIDAL VOLUME 450 ml; pH 7.413 (7.360-7.450); sO2 96.7 % (92.0-98.0)
[2017-01-13 05:17] LABS: ABG COMMENT AC20 450 +5 70%
[2017-01-13 05:41] LABS: CALCIUM 8.7 mg/dL (8.5-10.1); PHOSPHORUS 3.7 mg/dL (2.5-4.9); POTASSIUM 3.6 mmol/L (3.5-5.1)
[2017-01-13 07:50] VITALS: BP 108/53
[2017-01-13 16:46] VITALS: BP 117/64
[2017-01-13 19:55] VITALS: BP 118/66
[2017-01-13 20:11] VITALS: BP 132/64
[2017-01-13 20:54] VITALS: BP 143/67
[2017-01-13 22:18] VITALS: BP 134/62
[2017-01-14] VITALS (10 sets, daily range): BP systolic 114–136; BP diastolic 58–70
[2017-01-14 05:46] LABS: BASOPHILS 0.7 % (0.0-2.0); EOSINOPHILS 13.5 % (0.0-3.0); HEMATOCRIT 35.8 % (37.0-47.0); HEMOGLOBIN 11.4 gm/dL (12.0-15.0); LYMPHOCYTES 9.2 % (24.0-44.0); MCH 29.5 pg (26.0-34.0); MCV 92.1 fL (80.0-100.0); MONOCYTES 5.5 % (1.0-8.0); PLATELET COUNT 133 thou/uL (150-400); POLYS 71.1 % (36.0-66.0); RBC 3.88 mil/uL (4.20-5.00); RDW 17.3 % (10.5-14.5); WBC 4.2 thou/uL (4.0-11.0)
[2017-01-14 05:56] LABS: MANUAL DIFF NO
[2017-01-14 05:59] LABS: ABG SAMPLE TYPE ARTERIAL; BE(vivo) 4.8 mmol/L (-2 to +3); HCO3 30.7 mmol/L (22.0-26.0); LACTATE 1.48 mmol/L (0.5-2.0); O2(CT) 17.4 mL/dL (15.0-23.0); O2Hb 97.8 % (92.0-98.0); PCO2 51.6 mmHg (35.0-45.0); PO2 133.4 mmHg (80.0-100.0); STICK SITE LINE; pH 7.393 (7.360-7.450); sO2 98.6 % (92.0-98.0); tCO2 32.3 mmol/L (24.0-30.0)
[2017-01-14 06:00] LABS: ABG COMMENT A/C 20; TIDAL VOLUME 450 ml
[2017-01-14 06:07] LABS: ALBUMIN 1.9 g/dL (3.4-5.0); CALCIUM 8.7 mg/dL (8.5-10.1); CREATININE 1.4 mg/dL (0.6-1.0); POTASSIUM 3.4 mmol/L (3.5-5.1); TOTAL BILIRUBIN 0.6 mg/dL (<0.1-1.0)
[2017-01-14 18:17] LABS: CALCIUM 8.7 mg/dL (8.5-10.1); CREATININE 1.3 mg/dL (0.6-1.0); PHOSPHORUS 3.5 mg/dL (2.5-4.9); POTASSIUM 3.4 mmol/L (3.5-5.1)
[2017-01-15] VITALS (11 sets, daily range): BP systolic 102–166; BP diastolic 57–90
[2017-01-15 04:47] LABS: HEMATOCRIT 38.1 % (37.0-47.0); MCH 29.3 pg (26.0-34.0); MCHC 31.5 g/dL (28.0-37.0); PLATELET COUNT 124 thou/uL (150-400); RBC 4.09 mil/uL (4.20-5.00); WBC 5.9 thou/uL (4.0-11.0)
[2017-01-15 04:48] LABS: MANUAL DIFF YES
[2017-01-15 05:15] LABS: ALBUMIN 1.9 g/dL (3.4-5.0); CALCIUM 8.6 mg/dL (8.5-10.1); CREATININE 1.2 mg/dL (0.6-1.0); MAGNESIUM 1.8 mg/dL (1.8-2.4); PHOSPHORUS 3.4 mg/dL (2.5-4.9); POTASSIUM 3.7 mmol/L (3.5-5.1)
[2017-01-15 08:11] LABS: ABSOLUTE NEUTROPHILS 3.7 thou/uL (1.4-8.2); ANISOCYTOSIS 1+; OVALOCYTES OCCASIONAL; POIKILOCYTOSIS SLIGHT; TOTAL CELL COUNT 100
[2017-01-15 12:39] LABS: ABG SAMPLE TYPE ARTERIAL; BE(vivo) 4.3 mmol/L (-2 to +3); HCO3 32.6 mmol/L (22.0-26.0); LACTATE 1.25 mmol/L (0.5-2.0); O2(CT) 18.6 mL/dL (15.0-23.0); O2Hb 93.8 % (92.0-98.0); PO2 83.6 mmHg (80.0-100.0); sO2 95.1 % (92.0-98.0); tCO2 34.6 mmol/L (24.0-30.0)
[2017-01-15 12:42] LABS: PCO2 65.8 mmHg (35.0-45.0); STICK SITE LINE; TIDAL VOLUME 340 ml; pH 7.313 (7.360-7.450)
[2017-01-15 12:43] LABS: Pressure Support 8 cm H20
[2017-01-15 17:56] LABS: ABG SAMPLE TYPE ARTERIAL; BE(vivo) 3.8 mmol/L (-2 to +3); HCO3 32.1 mmol/L (22.0-26.0); LACTATE 1.26 mmol/L (0.5-2.0); O2Hb 93.7 % (92.0-98.0); sO2 94.9 % (92.0-98.0); tCO2 34.1 mmol/L (24.0-30.0)
[2017-01-15 17:57] LABS: PCO2 66.1 mmHg (35.0-45.0); pH 7.304 (7.360-7.450)
[2017-01-15 17:58] LABS: STICK SITE ALINE
[2017-01-15 17:59] LABS: Pressure Support 8 cm H20
[2017-01-16] VITALS (10 sets, daily range): BP systolic 121–137; BP diastolic 65–73
[2017-01-16 05:09] LABS: ALBUMIN 1.8 g/dL (3.4-5.0); CALCIUM 8.7 mg/dL (8.5-10.1); PHOSPHORUS 3.2 mg/dL (2.5-4.9); POTASSIUM 3.9 mmol/L (3.5-5.1)
[2017-01-16 08:58] LABS: ABG SAMPLE TYPE ARTERIAL; BE(vivo) 4.4 mmol/L (-2 to +3); HCO3 32.6 mmol/L (22.0-26.0); O2(CT) 17.1 mL/dL (15.0-23.0); O2Hb 93.8 % (92.0-98.0); PCO2 66.3 mmHg (35.0-45.0); PO2 84.8 mmHg (80.0-100.0); Pressure Support 8 cm H20; STICK SITE ALINE; pH 7.309 (7.360-7.450); sO2 95.2 % (92.0-98.0); tCO2 34.6 mmol/L (24.0-30.0)
[2017-01-16 14:14] LABS: ABG SAMPLE TYPE ARTERIAL; BE(vivo) -0.3 mmol/L (-2 to +3); Face Shield 60 %; HCO3 31.5 mmol/L (22.0-26.0); LACTATE 0.98 mmol/L (0.5-2.0); O2(CT) 18.2 mL/dL (15.0-23.0); O2Hb 92.8 % (92.0-98.0); PCO2 93.7 mmHg (35.0-45.0); PO2 85.6 mmHg (80.0-100.0); STICK SITE ALINE; pH 7.144 (7.360-7.450); sO2 92.7 % (92.0-98.0); tCO2 34.3 mmol/L (24.0-30.0)
[2017-01-16 16:18] LABS: ABG SAMPLE TYPE ARTERIAL; BE(vivo) 0.8 mmol/L (-2 to +3); HCO3 29.7 mmol/L (22.0-26.0); LACTATE 0.91 mmol/L (0.5-2.0); O2(CT) 16.4 mL/dL (15.0-23.0); O2Hb 92.8 % (92.0-98.0); PCO2 69.9 mmHg (35.0-45.0); PO2 78.1 mmHg (80.0-100.0); STICK SITE LINE; pH 7.246 (7.360-7.450); tCO2 31.8 mmol/L (24.0-30.0)
[2017-01-16 16:19] LABS: ABG COMMENT BIPAP 16/6
[2017-01-17 02:14] VITALS: BP 127/68
[2017-01-17 05:10] LABS: ABG SAMPLE TYPE ARTERIAL; BE(vivo) 7.6 mmol/L (-2 to +3); HCO3 35.3 mmol/L (22.0-26.0); LACTATE 1.13 mmol/L (0.5-2.0); O2(CT) 15.6 mL/dL (15.0-23.0); O2Hb 88.6 % (92.0-98.0); PCO2 66.1 mmHg (35.0-45.0); PO2 58.2 mmHg (80.0-100.0); STICK SITE LINE; pH 7.346 (7.360-7.450); sO2 87.9 % (92.0-98.0); tCO2 37.4 mmol/L (24.0-30.0)
[2017-01-17 05:11] LABS: ABG COMMENT BIPAP 16/6; Pressure Support 10 cm H20
[2017-01-18] VITALS (10 sets, daily range): BP systolic 90–158; BP diastolic 70–92
[2017-01-18 04:57] LABS: CREATININE 0.8 mg/dL (0.6-1.0); PHOSPHORUS 2.7 mg/dL (2.5-4.9); POTASSIUM 4.1 mmol/L (3.5-5.1)
[2017-01-18 05:27] LABS: ABG SAMPLE TYPE ARTERIAL; BE(vivo) 7.2 mmol/L (-2 to +3); HCO3 34.2 mmol/L (22.0-26.0); LACTATE 1.17 mmol/L (0.5-2.0); O2(CT) 16.5 mL/dL (15.0-23.0); O2Hb 91.5 % (92.0-98.0); PCO2 59.6 mmHg (35.0-45.0); PO2 64.5 mmHg (80.0-100.0); Pressure Support 10 cm H20; STICK SITE LINE; pH 7.377 (7.360-7.450); sO2 91.6 % (92.0-98.0); tCO2 36.1 mmol/L (24.0-30.0)
[2017-01-18 05:28] LABS: ABG COMMENT BIPAP 16/6
[2017-01-19] VITALS (7 sets, daily range): BP systolic 128–146; BP diastolic 65–79
[2017-01-19 08:04] LABS: ALBUMIN 2.2 g/dL (3.4-5.0); CALCIUM 9.1 mg/dL (8.5-10.1); CREATININE 1.1 mg/dL (0.6-1.0); PHOSPHORUS 3.4 mg/dL (2.5-4.9); POTASSIUM 4.6 mmol/L (3.5-5.1)
[2017-01-20 04:30] VITALS: BP 139/75
[2017-01-20 04:42] LABS: HEMATOCRIT 35.7 % (37.0-47.0); HEMOGLOBIN 11.2 gm/dL (12.0-15.0); MCH 29.5 pg (26.0-34.0); MCHC 31.3 g/dL (28.0-37.0); MCV 94.2 fL (80.0-100.0); RBC 3.79 mil/uL (4.20-5.00); RDW 18.3 % (10.5-14.5); WBC 5.2 thou/uL (4.0-11.0)
[2017-01-20 04:56] LABS: ALBUMIN 2.1 g/dL (3.4-5.0); CALCIUM 8.8 mg/dL (8.5-10.1); CREATININE 1.4 mg/dL (0.6-1.0); POTASSIUM 3.6 mmol/L (3.5-5.1); TOTAL BILIRUBIN 0.6 mg/dL (<0.1-1.0); TOTAL PROTEIN 6.2 g/dL (6.4-8.2)
[2017-01-20 05:17] LABS: ABG SAMPLE TYPE ARTERIAL; BE(vivo) 11.6 mmol/L (-2 to +3); HCO3 38.9 mmol/L (22.0-26.0); O2(CT) 15.9 mL/dL (15.0-23.0); PO2 63.6 mmHg (80.0-100.0); pH 7.395 (7.360-7.450); sO2 91.5 % (92.0-98.0); tCO2 40.9 mmol/L (24.0-30.0)
[2017-01-20 05:18] LABS: Face Shield 50 %; STICK SITE R.RADIAL
[2017-01-20 07:40] VITALS: BP 124/63
[2017-01-20 12:10] VITALS: BP 159/77
[2017-01-20 19:49] VITALS: BP 133/73
[2017-01-21 03:18] VITALS: BP 119/63
[2017-01-21 05:58] LABS: HEMATOCRIT 38.4 % (37.0-47.0); MCH 29.8 pg (26.0-34.0); MCHC 31.3 g/dL (28.0-37.0); MCV 94.9 fL (80.0-100.0); RBC 4.04 mil/uL (4.20-5.00); RDW 18.6 % (10.5-14.5); WBC 5.1 thou/uL (4.0-11.0)
[2017-01-21 06:15] LABS: ALBUMIN 2.2 g/dL (3.4-5.0); CALCIUM 8.5 mg/dL (8.5-10.1); CREATININE 1.5 mg/dL (0.6-1.0); POTASSIUM 3.5 mmol/L (3.5-5.1); TOTAL BILIRUBIN 0.7 mg/dL (<0.1-1.0); TOTAL PROTEIN 6.8 g/dL (6.4-8.2)
[2017-01-21 07:50] VITALS: BP 137/76
[2017-01-21 11:50] VITALS: BP 143/81
[2017-01-21 15:15] VITALS: BP 123/68
[2017-01-21 19:12] VITALS: BP 133/90
[2017-01-22 03:29] VITALS: BP 124/59
[2017-01-22 06:23] LABS: ALBUMIN 2.2 g/dL (3.4-5.0); ANION GAP < 0 mmol/L (7-16); BUN 30 mg/dL (7-18); CALCIUM 8.5 mg/dL (8.5-10.1); CHLORIDE 103 mmol/L (98-107); CO2 44 mmol/L (21-32); CREATININE 1.4 mg/dL (0.6-1.0); GLUCOSE 110 mg/dL (74-106); PHOSPHORUS 3.3 mg/dL (2.5-4.9); POTASSIUM 3.7 mmol/L (3.5-5.1); SODIUM 144 mmol/L (136-145)
[2017-01-22 07:40] VITALS: BP 135/79
[2017-01-22 12:05] VITALS: BP 133/71
[2017-01-22 12:35] VITALS: BP 133/71
[2017-01-22 20:34] VITALS: BP 128/63
[2017-01-23 05:11] VITALS: BP 126/81
[2017-01-23 05:41] LABS: HEMATOCRIT 37.2 % (37.0-47.0); HEMOGLOBIN 11.5 gm/dL (12.0-15.0); MCH 29.6 pg (26.0-34.0); MCHC 30.8 g/dL (28.0-37.0); RBC 3.88 mil/uL (4.20-5.00); RDW 19.1 % (10.5-14.5); WBC 5.8 thou/uL (4.0-11.0)
[2017-01-23 05:51] LABS: MAGNESIUM 1.1 mg/dL (1.8-2.4); PHOSPHORUS 2.8 mg/dL (2.5-4.9)
[2017-01-23 08:01] VITALS: BP 143/82
[2017-01-23 11:07] VITALS: BP 144/79
[2017-01-23 15:35] VITALS: BP 132/73
[2017-01-23 19:22] VITALS: BP 127/78
[2017-01-24] VITALS (13 sets, daily range): BP systolic 95–138; BP diastolic 56–85
[2017-01-24 07:48] LABS: HEMATOCRIT 40.1 % (37.0-47.0); MCH 29.1 pg (26.0-34.0); MCV 97.2 fL (80.0-100.0); PLATELET COUNT 459 thou/uL (150-400); RBC 4.13 mil/uL (4.20-5.00); RDW 19.4 % (10.5-14.5); WBC 6.4 thou/uL (4.0-11.0)
[2017-01-24 07:54] LABS: CALCIUM 8.6 mg/dL (8.5-10.1); CREATININE 1.3 mg/dL (0.6-1.0); MAGNESIUM 1.2 mg/dL (1.8-2.4); POTASSIUM 4.1 mmol/L (3.5-5.1)
[2017-01-24 08:07] LABS: MANUAL DIFF YES
[2017-01-24 08:58] LABS: ABSOLUTE NEUTROPHILS 4.8 thou/uL (1.4-8.2); ANISOCYTOSIS 2+; TOTAL CELL COUNT 100
[2017-01-25] VITALS (23 sets, daily range): BP systolic 102–133; BP diastolic 50–98
[2017-01-25 05:12] LABS: ABG SAMPLE TYPE ARTERIAL; BE(vivo) 12.8 mmol/L (-2 to +3); HCO3 41.1 mmol/L (22.0-26.0); LACTATE 1.12 mmol/L (0.5-2.0); O2(CT) 16.5 mL/dL (15.0-23.0); O2Hb 96.3 % (92.0-98.0); PO2 93.9 mmHg (80.0-100.0); pH 7.365 (7.360-7.450); sO2 96.6 % (92.0-98.0); tCO2 43.3 mmol/L (24.0-30.0)
[2017-01-25 05:13] LABS: PCO2 73.5 mmHg (35.0-45.0); STICK SITE R.RADIAL
[2017-01-25 05:14] LABS: ABG COMMENT BIPAP 18/8; Pressure Support 10 cm H20; TIDAL VOLUME 550 ml
[2017-01-26] VITALS (18 sets, daily range): BP systolic 110–135; BP diastolic 55–124
[2017-01-26 23:06] LABS: NIL (NEGATIVE) CONTROL SPOT CT 0; PANEL A SPOT CT 0; PANEL B SPOT CT 0; T-SPOT.TB Negative
[2017-01-26 23:07] LABS: POSITIVE CONTROL SPOT COUNT > 20
[2017-01-27] VITALS (23 sets, daily range): BP systolic 104–138; BP diastolic 55–90
[2017-01-27 05:03] LABS: HEMATOCRIT 35.1 % (37.0-47.0); MCH 29.8 pg (26.0-34.0); MCHC 31.3 g/dL (28.0-37.0); MCV 95.2 fL (80.0-100.0); RBC 3.68 mil/uL (4.20-5.00); RDW 18.9 % (10.5-14.5)
[2017-01-27 05:04] LABS: PLATELET COUNT 344 thou/uL (150-400)
[2017-01-27 05:05] LABS: MANUAL DIFF YES
[2017-01-27 05:18] LABS: ALBUMIN 1.9 g/dL (3.4-5.0); ALKALINE PHOSPHATASE 197 U/L (46-116); ANION GAP < 0 mmol/L (7-16); BUN 19 mg/dL (7-18); CALCIUM 8.8 mg/dL (8.5-10.1); CHLORIDE 102 mmol/L (98-107); CO2 43 mmol/L (21-32); CREATININE 1.2 mg/dL (0.6-1.0); GLUCOSE 99 mg/dL (74-106); MAGNESIUM 1.3 mg/dL (1.8-2.4); POTASSIUM 4.1 mmol/L (3.5-5.1); SGOT 10 U/L (15-37); SGPT < 6 U/L (30-65); SODIUM 144 mmol/L (136-145); TOTAL BILIRUBIN 0.5 mg/dL (<0.1-1.0); TOTAL PROTEIN 6.5 g/dL (6.4-8.2)
[2017-01-27 05:48] LABS: ABSOLUTE NEUTROPHILS 4.6 thou/uL (1.4-8.2); ANISOCYTOSIS 2+; MACROCYTES 1+; POLYCHROMASIA OCCASIONAL; TOTAL CELL COUNT 100
[2017-01-27 05:49] LABS: LARGE PLATELETS OCCASIONAL
[2017-01-28] VITALS (21 sets, daily range): BP systolic 103–131; BP diastolic 62–81
[2017-01-28 04:41] LABS: CREATININE 1.1 mg/dL (0.6-1.0); MAGNESIUM 1.8 mg/dL (1.8-2.4); POTASSIUM 4.3 mmol/L (3.5-5.1)
[2017-01-29] VITALS (22 sets, daily range): BP systolic 99–127; BP diastolic 61–88
[2017-01-29 15:09] LABS: URINE MAGNESIUM-mg/24hr 66.1 mg/24 hr (12.0-293.0); URINE MAGNESIUM-mg/dl 4.9 mg/dL (Not Estab.)
[2017-01-30] VITALS (22 sets, daily range): BP systolic 107–133; BP diastolic 64–108
[2017-01-30 04:27] LABS: BUN 16 mg/dL (7-18); CALCIUM 8.8 mg/dL (8.5-10.1); CHLORIDE 97 mmol/L (98-107); GLUCOSE 96 mg/dL (74-106); SODIUM 143 mmol/L (136-145)
[2017-01-30 04:31] LABS: CO2 > 45 mmol/L (21-32)
[2017-01-31] VITALS (24 sets, daily range): BP systolic 101–147; BP diastolic 52–85
[2017-01-31 05:05] LABS: BUN 13 mg/dL (7-18); CALCIUM 9.1 mg/dL (8.5-10.1); CHLORIDE 99 mmol/L (98-107); CREATININE 0.7 mg/dL (0.6-1.0); GLUCOSE 103 mg/dL (74-106); POTASSIUM 3.6 mmol/L (3.5-5.1); SODIUM 147 mmol/L (136-145)
[2017-01-31 05:07] LABS: CO2 > 45 mmol/L (21-32)
[2017-01-31 05:26] LABS: ABG SAMPLE TYPE ARTERIAL; BE(vivo) 18.5 mmol/L (-2 to +3); LACTATE 1.06 mmol/L (0.5-2.0); O2(CT) 17.9 mL/dL (15.0-23.0); PO2 141.8 mmHg (80.0-100.0); pH 7.334 (7.360-7.450); sO2 98.5 % (92.0-98.0); tCO2 51.9 mmol/L (24.0-30.0)
[2017-01-31 05:28] LABS: Face Shield 40 %; PCO2 94.2 mmHg (35.0-45.0); STICK SITE R.RADIAL
[2017-01-31 14:55] LABS: ALBUMIN 2.1 g/dL (3.4-5.0); ALKALINE PHOSPHATASE 189 U/L (46-116); DIRECT BILIRUBIN 0.2 mg/dL (<0.1-0.3); SGOT 10 U/L (15-37); SGPT < 6 U/L (30-65); TOTAL BILIRUBIN 0.4 mg/dL (<0.1-1.0); TOTAL PROTEIN 6.8 g/dL (6.4-8.2)
[2017-02-01] VITALS (24 sets, daily range): BP systolic 112–169; BP diastolic 65–97
[2017-02-01 06:20] LABS: BUN 11 mg/dL (7-18); CALCIUM 8.8 mg/dL (8.5-10.1); CHLORIDE 94 mmol/L (98-107); CREATININE 0.5 mg/dL (0.6-1.0); GLUCOSE 103 mg/dL (74-106); POTASSIUM 3.1 mmol/L (3.5-5.1); SODIUM 139 mmol/L (136-145)
[2017-02-01 06:23] LABS: CO2 > 45 mmol/L (21-32); MAGNESIUM 0.9 mg/dL (1.8-2.4)
[2017-02-01 14:42] LABS: MAGNESIUM 1.7 mg/dL (1.8-2.4); POTASSIUM 3.5 mmol/L (3.5-5.1)
[2017-02-02] VITALS (18 sets, daily range): BP systolic 101–134; BP diastolic 46–103
[2017-02-02 04:56] LABS: BUN 12 mg/dL (7-18); CALCIUM 8.5 mg/dL (8.5-10.1); CHLORIDE 99 mmol/L (98-107); CREATININE 0.6 mg/dL (0.6-1.0); GLUCOSE 105 mg/dL (74-106); MAGNESIUM 1.9 mg/dL (1.8-2.4); POTASSIUM 3.1 mmol/L (3.5-5.1); SODIUM 145 mmol/L (136-145)
[2017-02-02 05:00] LABS: CO2 > 45 mmol/L (21-32)
[2017-02-03] VITALS (21 sets, daily range): BP systolic 98–129; BP diastolic 57–87
[2017-02-03 05:35] LABS: ALBUMIN 2.2 g/dL (3.4-5.0); ALKALINE PHOSPHATASE 206 U/L (46-116); BUN 18 mg/dL (7-18); CALCIUM 8.9 mg/dL (8.5-10.1); CHLORIDE 97 mmol/L (98-107); CREATININE 0.5 mg/dL (0.6-1.0); GLUCOSE 107 mg/dL (74-106); POTASSIUM 3.6 mmol/L (3.5-5.1); SGOT 13 U/L (15-37); SODIUM 144 mmol/L (136-145); TOTAL BILIRUBIN 0.5 mg/dL (<0.1-1.0); TOTAL PROTEIN 7.2 g/dL (6.4-8.2)
[2017-02-03 05:37] LABS: SGPT < 6 U/L (30-65)
[2017-02-03 05:39] LABS: CO2 > 45 mmol/L (21-32)
[2017-02-04] VITALS (16 sets, daily range): BP systolic 101–147; BP diastolic 62–83
[2017-02-04 04:24] LABS: HEMATOCRIT 40.7 % (37.0-47.0); HEMOGLOBIN 12.6 gm/dL (12.0-15.0); MCH 29.3 pg (26.0-34.0); MCHC 30.9 g/dL (28.0-37.0); MCV 94.6 fL (80.0-100.0); PLATELET COUNT 245 thou/uL (150-400); RDW 20.1 % (10.5-14.5); WBC 11.3 thou/uL (4.0-11.0)
[2017-02-04 04:25] LABS: MANUAL DIFF YES
[2017-02-04 04:29] LABS: ALBUMIN 2.4 g/dL (3.4-5.0); CALCIUM 9.3 mg/dL (8.5-10.1); CREATININE 0.5 mg/dL (0.6-1.0); POTASSIUM 3.4 mmol/L (3.5-5.1); TOTAL BILIRUBIN 0.5 mg/dL (<0.1-1.0); TOTAL PROTEIN 7.6 g/dL (6.4-8.2)
[2017-02-04 04:46] LABS: ABSOLUTE NEUTROPHILS 9.2 thou/uL (1.4-8.2); ANISOCYTOSIS 2+; LARGE PLATELETS OCCASIONAL; TOTAL CELL COUNT 100
[2017-02-04 04:47] LABS: POLYCHROMASIA SLIGHT
[2017-02-04 08:08] LABS: ABG SAMPLE TYPE ARTERIAL; BE(vivo) 14.3 mmol/L (-2 to +3); HCO3 42.6 mmol/L (22.0-26.0); O2(CT) 18.4 mL/dL (15.0-23.0); O2Hb 92.3 % (92.0-98.0); PCO2 70.2 mmHg (35.0-45.0); PO2 68.6 mmHg (80.0-100.0); pH 7.401 (7.360-7.450); tCO2 44.8 mmol/L (24.0-30.0)
[2017-02-04 08:09] LABS: STICK SITE L.RADIAL
[2017-02-05 07:20] VITALS: BP 127/80
[2017-02-05 11:17] VITALS: BP 125/78
[2017-02-05 17:00] VITALS: BP 130/71
[2017-02-05 20:27] VITALS: BP 120/71
[2017-02-06] VITALS (7 sets, daily range): BP systolic 72–131; BP diastolic 49–81
[2017-02-06 07:20] LABS: CREATININE 0.7 mg/dL (0.6-1.0)
[2017-02-07 04:21] VITALS: BP 140/89
[2017-02-07 05:44] LABS: HEMATOCRIT 44.9 % (37.0-47.0); HEMOGLOBIN 13.9 gm/dL (12.0-15.0); MCHC 31.1 g/dL (28.0-37.0); MCV 93.5 fL (80.0-100.0); PLATELET COUNT 270 thou/uL (150-400); RDW 20.1 % (10.5-14.5); WBC 12.6 thou/uL (4.0-11.0)
[2017-02-07 05:49] LABS: MANUAL DIFF YES
[2017-02-07 05:58] LABS: CALCIUM 10.1 mg/dL (8.5-10.1); CREATININE 0.5 mg/dL (0.6-1.0); POTASSIUM 3.8 mmol/L (3.5-5.1)
[2017-02-07 07:55] VITALS: BP 136/82
[2017-02-07 08:57] LABS: ABSOLUTE NEUTROPHILS 11.5 thou/uL (1.4-8.2); METAMYELOCYTES 1 %; TOTAL CELL COUNT 100
[2017-02-07 08:58] LABS: ANISOCYTOSIS 2+
[2017-02-07 12:00] VITALS: BP 146/88
[2017-02-07 16:07] VITALS: BP 147/97
[2017-02-07 20:00] VITALS: BP 140/96
[2017-02-08 06:58] VITALS: BP 140/96
[2017-02-08 07:43] VITALS: BP 137/76
[2017-02-08 10:44] LABS: CALCIUM 10.3 mg/dL (8.5-10.1); CREATININE 0.6 mg/dL (0.6-1.0); POTASSIUM 3.5 mmol/L (3.5-5.1)
[2017-02-08 11:57] VITALS: BP 155/84
[2017-02-08 15:43] VITALS: BP 143/69
[2017-02-08 19:55] VITALS: BP 147/77
[2017-02-09 06:20] VITALS: BP 148/82
[2017-02-09 07:00] LABS: CALCIUM 10.2 mg/dL (8.5-10.1); CREATININE 0.4 mg/dL (0.6-1.0); POTASSIUM 3.8 mmol/L (3.5-5.1)
[2017-02-09 08:45] VITALS: BP 133/81
[2017-02-09 20:10] VITALS: BP 146/78
[2017-02-10 04:35] VITALS: BP 139/76
[2017-02-10 07:37] VITALS: BP 133/83
[2017-02-10] MEDS ORDERED: DEEP SEA NASAL44 M1 NASAL (09:31)
[2017-02-10] MEDS ORDERED: ASPIR 8181 MG PO (09:31)
[2017-02-10] MEDS ORDERED: CLARITIN10 M2 PO (09:31)
[2017-02-10] MEDS ORDERED: RESTORIL15 MG PO (09:31)
[2017-02-10] MEDS ORDERED: NEO-SYNEPHRINE15 M2 NASAL (09:31)
[2017-02-10] MEDS ORDERED: AMMONIUM LACTA225 GM TOP (09:31)
[2017-02-10] MEDS ORDERED: AYR SALINE NASA14 GM TOP (09:31)
[2017-02-10] MEDS ORDERED: THEO-24100 MG PO (09:31)
[2017-02-10] MEDS ORDERED: PEPCID20 MG PER TUBE (09:31)
[2017-02-10] MEDS ORDERED: HEPARIN SO5000 UNIT/ SUBQ (09:31)
[2017-02-10] MEDS ORDERED: PAIN & FEVER325 MG PO (09:31)
[2017-02-10] MEDS ORDERED: DUONEB 2.5-0.5 M3 ML INH (09:31)
[2017-02-10] MEDS ORDERED: CLOBETASOL PROP60 G3 TOP (09:31)
[2017-02-10] MEDS ORDERED: LASIX 40 MG TAB40 M1 PO (09:32)
[2017-02-10 11:30] VITALS: BP 141/84
== END 2017-02-10 12:59 | DRG 166 ==
LOC: ER 19:12 → 4N 21:55 → EROBS 21:55 → 3W 21:55 → 4N 23:11 → 3W 01-05 17:19 → ICU 01-09 21:26 → 2N 01-19 13:32 → ICU 01-24 12:38 → 3W 02-04 17:58
PROVIDERS: Emergency Medicine; Family Medicine; Hospitalist; Internal Medicine; Internal Medicine Endocrinology, Diabetes & Metabolism; Internal Medicine Infectious Disease; Internal Medicine Nephrology; Internal Medicine Pulmonary Disease; Nurse Practitioner Acute Care; Nurse Practitioner Adult Health; Nurse Practitioner Family; Radiology Diagnostic Radiology; Registered Nurse; Specialist
DX: J96.21 Acute and chronic respiratory failure with hypoxia (principal); J15.1 Pneumonia due to Pseudomonas; B37.49 Other urogenital candidiasis; J90 Pleural effusion, not elsewhere classified; E46 Unspecified protein-calorie malnutrition; Z68.41 Body mass index [BMI] 40.0-44.9, adult; J98.11 Atelectasis; T17.890A Other foreign object in other parts of respiratory tract causing asphyxiation, initial encounter; N17.9 Acute kidney failure, unspecified; N13.2 Hydronephrosis with renal and ureteral calculous obstruction; I44.2 Atrioventricular block, complete; J96.22 Acute and chronic respiratory failure with hypercapnia; D69.6 Thrombocytopenia, unspecified; E83.42 Hypomagnesemia; I27.20 Pulmonary hypertension, unspecified; I27.81 Cor pulmonale (chronic); G47.33 Obstructive sleep apnea (adult) (pediatric); L40.9 Psoriasis, unspecified; X58.XXXA Exposure to other specified factors, initial encounter; I50.9 Heart failure, unspecified; N18.9 Chronic kidney disease, unspecified; N13.9 Obstructive and reflux uropathy, unspecified; E66.01 Morbid (severe) obesity due to excess calories; L57.0 Actinic keratosis; G47.00 Insomnia, unspecified; N99.528 Other complication of incontinent external stoma of urinary tract; Y83.8 Other surgical procedures as the cause of abnormal reaction of the patient, or of later complication, without mention of misadventure at the time of the procedure; Y93.89 Activity, other specified; Y92.89 Other specified places as the place of occurrence of the external cause; Y99.8 Other external cause status; Z90.49 Acquired absence of other specified parts of digestive tract; Z98.891 History of uterine scar from previous surgery
CPT/HCPCS: 10078; 10081; 10779; 10790; 62110; 62900; 70005

== ENCOUNTER 2017-02-10 13:17 | Inpatient (IN) | payer OTHER ==
[~2017-02-10] VITALS: Ht 157.5 cm; Wt 106.5 kg
--- NOTE | ~2017-02-10 | EEG ---
[facility] [address] [place] [address] ELECTROENCEPHALOGRAM Name: TAVON MACKENZIE Room #: 512-P ADM IN M.R.#: [id number] Admission: 02/10/17 Attend Phys: Chino Hernández MD Discharge: Date of : 64 Report #: [id number] THIS REPORT FOR: //name// CC: Chino Hernández [facility] physician/PCP DATE OF SERVICE: 02/26/2017 This patient is being evaluated for the possibility of seizure. EEG was done by placing the electrodes by standard 10/20 system of electrode placement. Both referential and sequential montages were used for recording. Background activity in this patient's EEG is about 11 Hz and 40-50 microvolt. The patient went to sleep that is associated with bilaterally symmetrical sleep spindle and vertex sharp waves. Photic stimulation is unremarkable. A lot of artifact is present in this EEG making the interpretation of this EEG very difficult. IMPRESSION: This patient's EEG is very difficult to interpret and no definite impression can be formed because the EEG is intermixed with a lot of artifact. The best I can tell there is no active epileptiform activity. Thank you very much for this referral. <ELECTRONICALLY SIGNED> By: Guillaume Morse MD 02/27/17 1214 0859 0924 Guillaume Morse MD /nt
--- NOTE | ~2017-02-10 | PLAN ---
[facility] [place] [address] REHAB UNIT PLAN OF CARE Name: TAVON MACKENZIE Arthur Room #: 512-P ADM IN M.R.#: [id number] Admission: 02/10/17 Attend Phys: Chino Hernández MD Discharge: Date of : 64 Report #: [id number] THIS REPORT FOR: //name// CC: Chino Hernández [facility] physician/PCP DATE OF SERVICE: 02/13/2017 The patient is seen back today in followup. She is in no distress. Temperature 97.7, pulse 104, respirations 20, blood pressure 139/85. She is working in therapies. Bed to wheelchair is max assist of 2. Working on some limited sliding board transfers. Upper extremity dressing is mod assist. She does have lwwf-[id number]-hkwokgqe expressive deficits. She looks a little brighter today. Nephrology is continuing to follow regarding her nephrostomy tube. ASSESSMENT: 1. Critical illness myopathy. 2. Acute on probable chronic hypoxic hypercapnic respiratory failure. 3. Anasarca. 4. Pulmonary hypertension, severe cor pulmonale with right-sided failure. 5. Morbid obesity with suspected obstructive sleep apnea. 6. Pneumonia, right lung with atelectasis. 7. Nephrolithiasis, status post right nephrostomy tube. 8. Psoriasis. PLAN: The overall plan of care is based on the preadmission screen, post-admission physician evaluation and information garnered from therapy assessments. 1. Estimated length of stay is probably at least 3 weeks as she is at a lower level and needs to make significant functional progress. 2. Medical prognosis is reasonably good. 3. Anticipated interventions includes the interdisciplinary acute inpatient rehabilitation program. 4. Anticipated functional outcomes would be for the patient to improve with her transfers and mobility issues that she can return back home. Speech therapy is following as well regarding some comprehension deficits. 5. Anticipated functional outcomes would be for the patient to hopefully improve with basic transfers and mobility issues, so that she could at least be independent at a wheelchair level and to improve as far as overall cognition. 6. Discharge destination would be back to the home setting where she lives with her significant other. 7. Expected therapy by discipline includes PT and OT and speech 1 hour per day each five days a week throughout the duration of the acute inpatient [address] [address] REHAB UNIT PLAN OF CARE Name: TAVON MACKENZIE Arthur Room #: 512-P [facility].#: [id number] Admission: 02/10/17 Attend Phys: Chino Hernández MD Discharge: Date of : 64 Report #: [id number] rehabilitation stay. We may be able to wean off some of the speech therapy, but continue with PT and OT. <ELECTRONICALLY SIGNED> By: Chino Hernández MD 02/22/17 1108 1217 [facility] Chino Hernández MD /PATRICK
--- NOTE | ~2017-02-10 | HC ---
[facility] [place] [address] CONSULTATION Name: TAVON MACKENZIE Room #: 512-P [facility] IN M.R.#: [id number] Admission: 02/10/17 Attend Phys: Chino Hernández MD Discharge: Date of : 64 Report #: [id number] THIS REPORT FOR: //name// CC: Chino Hernández [facility] physician/PCP DATE OF SERVICE: 02/16/2017 NEUROBEHAVIORAL STATUS EXAM AGE: 56. ATTENDING PHYSICIAN: Chino Hernández M.D. BEARINGIZER: Joaquin Tristan, PhD. CLINICAL PRESENTATION: The patient is a 56-year-old female admitted to [facility] rehabilitation unit for comprehensive inpatient rehabilitation program to improve functional mobility, activities of daily living and self-care and mental status secondary to impairment from medical complexity with generalized debility. She has a history of acute congestive heart failure and was noted to have renal failure and pulmonary hypertension. She developed hypoxemic respiratory failure and was noted to have a large right pleural effusion and underwent thoracentesis. The patient has a history of morbid obesity. Her diagnoses on admission to rehab includes critical illness myopathy, acute on probable chronic hypoxic hypercapnic respiratory failure, anasarca, pulmonary hypertension, morbid obesity with suspected obstructive sleep apnea, pneumonia, nephrolithiasis, psoriasis and weakness with generalized debilitation. A complete description of her medical condition, history and medications can be found in her medical record. Neuropsychological consultation was requested to provide assistance in the assessment of cognitive and emotional status and to provide recommendations and services. Prior to this most recent medical event, she is reported to have been living independently. She has 1 son and a significant other. The patient has not been working. She was employed as a social worker psychiatric. She is a college graduate. The patient was independent with basic and instrumental activities of daily living. She was driving, cooking and managing household tasks. There is no reported history of treatment for anxiety/depression or alcohol/drug abuse. TECHNIQUES UTILIZED: Clinical interview, review of medical records, staff consultation and behavioral observation, family interview - son, mini mental status exam 2 standard version, and calibrated ideational fluency assessment (letter and category) and clock drawing. EXAMINATION FINDINGS: The patient was alert and cooperative with the [facility] [address] [place] [address] CONSULTATION Name: TAVON MACKENZIE Arthur Room #: 512-P [facility] IN .R.#: [id number] Admission: 02/10/17 Attend Phys: Chino Hernández MD Discharge: Date of : 64 Report #: [id number] assessment. She has inconsistent memory of events surrounding her admission. She remembers traveling to the hospital and then an inconsistent memory of events until the weaning of the vent. Her current symptoms are reported to include memory, word finding, decreased speed of response, irritability with decreased patience, subjective anxiety and depression, difficulty with sleep and appetite. Her family also noticed time distortion and disorientation. The patient seems to have good insight into cognitive deficits. In addition, she reported to have had an instance of 30-45 minute amnestic episode in which she had poor and delay any consistent responsiveness to commands. Her performance on the MMSE 2 standard version is within normal limits with a raw score of 28 of 30. She was 3/3 for registration, 5/5 for orientation to time and place. She was 2/3 for immediate recall of 3 items after a brief time delay and distraction. The patient was 4/5 for serial sevens. She was 2/2 for naming, repetition, auditory comprehension. She could read and follow a single command. She is able to write a sentence and copy a simple geometric design. Clock drawing was slightly inaccurate with placement of minute hand. Category fluency was extremely low with a raw score 22, T score 19, percentile rank of less than 1. Letter fluency was in the borderline range with a T score of 32 and percentile rank of 4. Overall, total fluency was extremely low with a T score of 19 and percentile rank of less than 1. During a category fluency task, the patient became fatigued and sluggish and fell asleep. She is likely to become increasingly drowsy when experiencing increasing challenge. In general, the patient presents as a well oriented with deficits in higher level executive functioning. Intermittent confusion and disorientation as a result of variability in attention and concentration may be noted. DIAGNOSTIC IMPRESSION: Neurocognitive disorder, due to medical etiology, without behavior disorder, extent to be determined, likely in the mild to moderate range. Adjustment disorder with anxiety and depressed mood. RECOMMENDATIONS: The patient will benefit from a followup neuropsych assessment upon discharge to clarify the severity of cognitive deficits. At this time, she will need assistance with medical, financial and nutritional management. While the patient is alert and oriented, inconsistency in attention and concentration will likely lead to variability in problem solving. The use of a memory and orientation book will be helpful during her rehabilitation stay. [address] [address] CONSULTATION Name: TAVON MCAKENZIE Room #: 512-P [facility] IN M.R.#: [id number] Admission: 02/10/17 Attend Phys: Chino Hernández MD Discharge: Date of : 64 Report #: [id number] Thank you very much for allowing me to provide the consultation on this patient. <ELECTRONICALLY SIGNED> By: Joaquin Tristan, PhD 02/18/17 1856 1215 1433 Joaquin Tristan, PhD /nt
--- NOTE | ~2017-02-10 | H ---
[facility] [place] [address] HISTORY AND PHYSICAL Name: TAVON MACKENZIE Arthur Room #: 512-P ADM IN M.R.#: [id number] Admission: 02/10/17 Attend Phys: Chino Hernández MD Discharge: Date of : 64 Report #: [id number] THIS REPORT FOR: //name// CC: Chino Hernández [facility] physician/PCP DATE OF SERVICE: 02/11/2017 HISTORY OF PRESENT ILLNESS: The patient is a 56-year-old female originally admitted to [facility] with acute congestive heart failure exacerbation, anasarca was noted to have acute renal failure and pulmonary hypertension. She developed hypoxemic respiratory failure, was noted to have a large right pleural effusion and underwent thoracentesis. She has morbid obesity. She also had a right renal calculus with some mild nephrosis with Neurology involved and she underwent a nephrostomy tube placement. Her admission weight was 350 pounds. She was diuresed aggressively with her anasarca with the way down to 242 pounds. Most of this was noted to be fluid. She was in respiratory failure requiring BiPAP up to 10 liters. This was able to be weaned down to 1 liter. She had a thoracentesis of 900 mL. She was noted to have severe pulmonary hypertension, right-sided heart failure. Urology is recommending keeping the percutaneous nephrostomy tube and to do a lithotripsy when the patient's pulmonary status improved. She also has a severe psoriatic rash and his post-heart block. She was noted to be very debilitated, but is starting to tolerate rehabilitation therapies. She has now been admitted for an acute in-hospital inpatient rehabilitation stay. PAST MEDICAL HISTORY: Includes morbid obesity, asthma as a child and psoriasis. MEDICATIONS: Please see the full medication listing. Each of these was individually reconciled upon her admission to the inpatient rehab guevara and includes vitamins, herbals and supplements. HABITS: No history of tobacco or alcohol abuse. SOCIAL HISTORY: Lives in a house with her male with significant other. She did not utilize any gait aids. There are 3 steps in. She does not have a primary care physician. REVIEW OF SYSTEMS: Complains of generalized weakness. No current complaints of chest pain, shortness of breath, abdominal discomfort. No focal extremity pain complaints. PHYSICAL EXAMINATION: GENERAL: A 56-year-old morbidly obese white female in no obvious distress. VITAL SIGNS: Last recorded, height 5 feet 2 inches with a weight 234 pounds. Temperature 98.4, pulse 73, respirations 20, blood pressure 133/75. [address] [address] HISTORY AND PHYSICAL Name: TAVON MACKENZIE Room #: 512-P [facility] IN ..#: [id number] Admission: 02/10/17 Attend Phys: Chino Hernández MD Discharge: Date of : 64 Report #: [id number] NEUROLOGIC: She is alert, will follow basic 1 step commands. Facies appeared to be symmetric. She has psoriatic lesions over both of her anterior shins as well as her extensor forearms. CHEST: Some diffuse decreased breath sounds. She is currently on nasal prong O2 one liter. CARDIOVASCULAR: Sounded regular rate and rhythm. ABDOMEN: Large abdominal pannus, bowel sounds sounded positive. LOWER EXTREMITIES: Flank, she had considerable difficulty trying to roll herself in bed. I had the bed rails up in assisted rolling to the right while she is lying in bed. She does have the right nephrostomy tube in place. Upper extremities with functional range of motion, strength is grade 3+ to 4-/5. Lower extremities, no focal calf swelling. Strength is a grade 3+ to 3. She has been max assist with basic transfers. We are working on trying to do some limited sitting. ASSESSMENT: 1. Critical illness myopathy. 2. Acute on probable chronic hypoxic hypercapnic respiratory failure. 3. Anasarca. 4. Pulmonary hypertension, severe cor pulmonale with right-sided heart failure. 5. Morbid obesity with suspected obstructive sleep apnea. 6. Pneumonia, right lung with atelectasis. 7. Nephrolithiasis, status post right nephrostomy tube. 8. Psoriasis. 9. Considerable weakness with generalized debilitation. PLAN: Neurology is most recent note reviewed, considering stone management in the future versus continued nephrostomy tube exchange depending upon her recovery. From a postadmission physician evaluation perspective, there are no relevant changes since the preadmission screening. Please see the above review of prior and current medical and functional conditions and comorbidities. Please see the patient's previous and current functional status. As far as risk of complications, the patient has multiple medical comorbidities as noted above. Initial plan of care involves the interdisciplinary acute inpatient rehabilitation program with goal of maximizing the patient's functional independence, so she can hopefully return back to her prior living situation. Measurable functional goals would be for the patient to become modified independent with transfers, mobility and ADLs with hopes of having return back to her prior living situation. Prognosis is reasonably good. She is at a significantly low level, but her goal is to try to further improve her overall strength and endurance. Estimated length of stay is probably going to be fairly long period. Potential barriers would include her multiple medical comorbidities and decreased functional status. The patient meets diagnostic criteria for an acute in-hospital inpatient rehabilitation stay. She meets medical necessity criteria and we will have the [address] [place] [address] HISTORY AND PHYSICAL Name: TAVON MACKENZIE Arthur Room #: 512-P ADM IN M.R.#: [id number] Admission: 02/10/17 Attend Phys: Chino Hernández MD Discharge: Date of : 64 Report #: [id number] multiple healthcare market consultant physicians continue to follow. She does have the tolerance for therapies and has appropriate discharge goals back to the home setting. <ELECTRONICALLY SIGNED> By: Chino Hernández MD 02/22/17 1108 0957 1018 Chino Hernández MD /PMT
[2017-02-10 13:00] VITALS: BP 135/84
[~2017-02-10 13:17] MED LIST: AMMONIUM LACTA225 GM TOP; ASPIR 8181 MG PO; AYR SALINE NASA14 GM TOP; CLARITIN10 M2 PO; CLOBETASOL PROP60 G3 TOP; DEEP SEA NASAL44 M1 NASAL; DUONEB 2.5-0.5 M3 ML INH; HEPARIN SO5000 UNIT/ SUBQ; LASIX 40 MG TAB40 M1 PO; NEO-SYNEPHRINE15 M2 NASAL; PAIN & FEVER325 MG PO; PEPCID20 MG PER TUBE; RESTORIL15 MG PO; THEO-24100 MG PO
[2017-02-10 19:59] VITALS: BP 139/82
[2017-02-10 20:00] VITALS: BP 133/75
[2017-02-11 06:08] LABS: HEMATOCRIT 44.8 % (37.0-47.0); HEMOGLOBIN 14.1 gm/dL (12.0-15.0); MCH 28.8 pg (26.0-34.0); MCHC 31.5 g/dL (28.0-37.0); MCV 91.5 fL (80.0-100.0); RBC 4.9 mil/uL (4.20-5.00); RDW 19.8 % (10.5-14.5); WBC 16.4 thou/uL (4.0-11.0)
[2017-02-11 06:24] LABS: CALCIUM 10.2 mg/dL (8.5-10.1); CREATININE 0.6 mg/dL (0.6-1.0); POTASSIUM 3.3 mmol/L (3.5-5.1)
[2017-02-11 08:00] VITALS: BP 139/80
[2017-02-11 13:11] LABS: URINE BLOOD 3+ (Negative); URINE COLOR YELLOW; URINE GLUCOSE-RANDOM* NEGATIVE (Negative); URINE KETONES NEGATIVE (Negative); URINE PROTEIN (DIPSTICK) 2+ (Negative); URINE SPECIFIC GRAVITY 1.015 (1.003-1.035); URINE UROBILINOGEN 0.2 E.U./dl (0.2-1.0)
[2017-02-11 13:19] LABS: URINE LEUKOCYTES-REFLEX 2+ (Negative)
[2017-02-11 13:21] LABS: URINE BILIRUBIN NEGATIVE (Negative)
[2017-02-11 13:33] LABS: SQUAMOUS 0-3 Few /LPF (0-3)
[2017-02-11 13:34] LABS: CASTS None Seen /LPF (None Seen); CRYSTALS None Seen /LPF (None Seen); URINE RBC >20 Many /HPF (0-2); URINE WBC-REFLEX >25 Many /HPF (0-5)
[2017-02-11 20:15] VITALS: BP 120/68
[2017-02-12 05:56] LABS: HEMATOCRIT 42.3 % (37.0-47.0); HEMOGLOBIN 13.5 gm/dL (12.0-15.0); MCH 29.3 pg (26.0-34.0); MCHC 31.9 g/dL (28.0-37.0); MCV 91.8 fL (80.0-100.0); PLATELET COUNT 288 thou/uL (150-400); RBC 4.61 mil/uL (4.20-5.00); RDW 19.8 % (10.5-14.5); WBC 14.8 thou/uL (4.0-11.0)
[2017-02-12 06:00] LABS: MANUAL DIFF YES
[2017-02-12 06:51] LABS: ABG COMMENT ROOM AIR; ABG SAMPLE TYPE ARTERIAL; BE(vivo) 9.7 mmol/L (-2 to +3); LACTATE 1.07 mmol/L (0.5-2.0); O2(CT) 18.3 mL/dL (15.0-23.0); O2Hb 90.6 % (92.0-98.0); PCO2 44.4 mmHg (35.0-45.0); PO2 60.2 mmHg (80.0-100.0); STICK SITE R.RADIAL; pH 7.502 (7.360-7.450); sO2 92.9 % (92.0-98.0); tCO2 35.4 mmol/L (24.0-30.0)
[2017-02-12 07:49] LABS: ANISOCYTOSIS 1+; POIKILOCYTOSIS SLIGHT; TOTAL CELL COUNT 100
[2017-02-12 08:00] VITALS: BP 133/81
[2017-02-12 18:08] LABS: CALCIUM 9.8 mg/dL (8.5-10.1); CREATININE 0.7 mg/dL (0.6-1.0); MAGNESIUM 1.5 mg/dL (1.8-2.4); POTASSIUM 3.4 mmol/L (3.5-5.1)
[2017-02-12 20:03] VITALS: BP 139/85
[2017-02-13 06:28] LABS: CALCIUM 9.8 mg/dL (8.5-10.1); CREATININE 0.6 mg/dL (0.6-1.0); POTASSIUM 3.9 mmol/L (3.5-5.1)
[2017-02-13 08:52] VITALS: BP 135/88
[2017-02-13 20:42] VITALS: BP 128/83
[2017-02-14 04:13] LABS: HEMATOCRIT 41.9 % (37.0-47.0); HEMOGLOBIN 13.3 gm/dL (12.0-15.0); MCH 29.5 pg (26.0-34.0); MCHC 31.8 g/dL (28.0-37.0); MCV 92.5 fL (80.0-100.0); PLATELET COUNT 307 thou/uL (150-400); RBC 4.53 mil/uL (4.20-5.00); RDW 19.7 % (10.5-14.5)
[2017-02-14 04:15] LABS: MANUAL DIFF YES
[2017-02-14 04:21] LABS: CALCIUM 9.5 mg/dL (8.5-10.1); CREATININE 0.6 mg/dL (0.6-1.0); MAGNESIUM 2.5 mg/dL (1.8-2.4)
[2017-02-14 04:28] LABS: POTASSIUM 5.3 mmol/L (3.5-5.1)
[2017-02-14 05:46] LABS: ABSOLUTE NEUTROPHILS 10.4 thou/uL (1.4-8.2); ANISOCYTOSIS 2+; TOTAL CELL COUNT 100
[2017-02-14 05:47] LABS: POLYCHROMASIA OCCASIONAL
[2017-02-14 08:36] VITALS: BP 134/79
[2017-02-14 19:31] VITALS: BP 130/83
[2017-02-15 08:18] VITALS: BP 126/84
[2017-02-15 09:10] VITALS: BP 132/87
[2017-02-15 10:03] LABS: ABG SAMPLE TYPE ARTERIAL; BE(vivo) 9.4 mmol/L (-2 to +3); HCO3 35.9 mmol/L (22.0-26.0); LACTATE 2.01 mmol/L (0.5-2.0); O2(CT) 19.6 mL/dL (15.0-23.0); O2Hb 92.7 % (92.0-98.0); PCO2 55.6 mmHg (35.0-45.0); PO2 73.9 mmHg (80.0-100.0); pH 7.428 (7.360-7.450); sO2 94.9 % (92.0-98.0); tCO2 37.6 mmol/L (24.0-30.0)
[2017-02-15 10:04] LABS: STICK SITE L.RADIAL
[2017-02-15 10:35] LABS: CALCIUM 9.9 mg/dL (8.5-10.1); CREATININE 0.6 mg/dL (0.6-1.0); POTASSIUM 4.9 mmol/L (3.5-5.1)
[2017-02-15 15:26] LABS: URINE BILIRUBIN NEGATIVE (Negative); URINE BLOOD 3+ (Negative); URINE COLOR YELLOW; URINE GLUCOSE-RANDOM* NEGATIVE (Negative); URINE KETONES NEGATIVE (Negative); URINE NITRITE POSITIVE (Negative); URINE PROTEIN (DIPSTICK) 1+ (Negative); URINE UROBILINOGEN 0.2 E.U./dl (0.2-1.0)
[2017-02-15 15:36] LABS: SQUAMOUS 4-10 Moderate /LPF (0-3)
[2017-02-15 15:37] LABS: BACTERIA >30 Many /HPF (None Seen); CASTS None Seen /LPF (None Seen); CRYSTALS None Seen /LPF (None Seen); URINE WBC >25 Many /HPF (0-5)
[2017-02-15 20:37] VITALS: BP 122/69
[2017-02-15 20:39] VITALS: BP 145/67
[2017-02-15 20:40] VITALS: BP 130/65
[2017-02-15 20:42] VITALS: BP 122/69
[2017-02-16 10:17] VITALS: BP 124/80
[2017-02-16 19:50] VITALS: BP 122/71
[2017-02-17 12:52] VITALS: BP 103/57
[2017-02-17 20:20] VITALS: BP 111/70
[2017-02-18 09:00] VITALS: BP 125/71
[2017-02-18 15:12] VITALS: BP 122/81
[2017-02-18 20:02] VITALS: BP 119/73
[2017-02-19 06:15] LABS: ABSOLUTE NEUTROPHILS 4.2 thou/uL (1.4-8.2); BASOPHILS 2.9 % (0.0-2.0); EOSINOPHILS 12.4 % (0.0-3.0); HEMATOCRIT 40.5 % (37.0-47.0); LYMPHOCYTES 12.1 % (24.0-44.0); MCH 29.7 pg (26.0-34.0); MCV 92.7 fL (80.0-100.0); MONOCYTES 10.7 % (1.0-8.0); PLATELET COUNT 296 thou/uL (150-400); POLYS 61.9 % (36.0-66.0); RBC 4.37 mil/uL (4.20-5.00); RDW 19.7 % (10.5-14.5); WBC 6.9 thou/uL (4.0-11.0)
[2017-02-19 06:16] LABS: MANUAL DIFF NO
[2017-02-19 06:23] LABS: CALCIUM 9.2 mg/dL (8.5-10.1); CREATININE 0.7 mg/dL (0.6-1.0); MAGNESIUM 2.2 mg/dL (1.8-2.4); POTASSIUM 3.9 mmol/L (3.5-5.1)
[2017-02-19 09:00] VITALS: BP 109/68
[2017-02-19 20:02] VITALS: BP 123/70
[2017-02-20 08:30] VITALS: BP 131/83
[2017-02-20 20:00] VITALS: BP 122/74
[2017-02-21 08:30] VITALS: BP 125/76
[2017-02-21 21:18] VITALS: BP 106/80
[2017-02-22 06:12] LABS: ABSOLUTE NEUTROPHILS 4.5 thou/uL (1.4-8.2); BASOPHILS 0.9 % (0.0-2.0); EOSINOPHILS 16.5 % (0.0-3.0); HEMATOCRIT 38.3 % (37.0-47.0); HEMOGLOBIN 12.1 gm/dL (12.0-15.0); LYMPHOCYTES 11.9 % (24.0-44.0); MCH 29.7 pg (26.0-34.0); MCHC 31.6 g/dL (28.0-37.0); MCV 93.9 fL (80.0-100.0); MONOCYTES 8.1 % (1.0-8.0); PLATELET COUNT 287 thou/uL (150-400); POLYS 62.6 % (36.0-66.0); RBC 4.08 mil/uL (4.20-5.00); RDW 20.3 % (10.5-14.5); WBC 7.1 thou/uL (4.0-11.0)
[2017-02-22 06:19] LABS: MANUAL DIFF NO
[2017-02-22 06:23] LABS: CALCIUM 9.1 mg/dL (8.5-10.1); CREATININE 0.6 mg/dL (0.6-1.0); MAGNESIUM 2.2 mg/dL (1.8-2.4); POTASSIUM 3.6 mmol/L (3.5-5.1)
[2017-02-22 07:30] VITALS: BP 144/84
[2017-02-22 20:19] VITALS: BP 124/71
[2017-02-23 08:40] VITALS: BP 123/79
[2017-02-23 19:49] VITALS: BP 138/84
[2017-02-24 08:45] VITALS: BP 132/82
[2017-02-24 19:40] VITALS: BP 115/67
[2017-02-25 08:30] VITALS: BP 124/76
[2017-02-25 20:29] VITALS: BP 130/78
[2017-02-26 04:11] LABS: HEMATOCRIT 35.5 % (37.0-47.0); HEMOGLOBIN 11.6 gm/dL (12.0-15.0); MCH 30.5 pg (26.0-34.0); MCHC 32.6 g/dL (28.0-37.0); MCV 93.5 fL (80.0-100.0); PLATELET COUNT 261 thou/uL (150-400); RBC 3.79 mil/uL (4.20-5.00); RDW 20.5 % (10.5-14.5); WBC 8.6 thou/uL (4.0-11.0)
[2017-02-26 04:12] LABS: MANUAL DIFF YES
[2017-02-26 04:25] LABS: ALBUMIN 2.2 g/dL (3.4-5.0); CALCIUM 8.7 mg/dL (8.5-10.1); CREATININE 0.6 mg/dL (0.6-1.0); MAGNESIUM 2.1 mg/dL (1.8-2.4); TOTAL BILIRUBIN 0.6 mg/dL (<0.1-1.0); TOTAL PROTEIN 6.2 g/dL (6.4-8.2)
[2017-02-26 05:06] LABS: ABSOLUTE NEUTROPHILS 5.9 thou/uL (1.4-8.2); LARGE PLATELETS FEW; TOTAL CELL COUNT 100
[2017-02-26 05:07] LABS: ANISOCYTOSIS 2+; POLYCHROMASIA 1+
[2017-02-26 07:50] VITALS: BP 127/85
[2017-02-26 19:59] VITALS: BP 113/72
[2017-02-27 09:31] VITALS: BP 128/79
[2017-02-27 19:39] VITALS: BP 117/76
[2017-02-28 06:29] VITALS: BP 117/76
[2017-02-28 08:00] VITALS: BP 108/71
[2017-02-28 19:08] VITALS: BP 124/78
[2017-03-01] VITALS (8 sets, daily range): BP systolic 117–138; BP diastolic 58–80
[2017-03-02 08:00] VITALS: BP 134/80
[2017-03-02 22:21] VITALS: BP 111/59
[2017-03-03 08:00] VITALS: BP 125/66
[2017-03-03 20:00] VITALS: BP 119/59
[2017-03-04 03:57] LABS: HEMATOCRIT 34.5 % (37.0-47.0); MCH 30.4 pg (26.0-34.0); MCHC 31.8 g/dL (28.0-37.0); MCV 95.5 fL (80.0-100.0); PLATELET COUNT 316 thou/uL (150-400); RBC 3.61 mil/uL (4.20-5.00); RDW 19.5 % (10.5-14.5); WBC 8.1 thou/uL (4.0-11.0)
[2017-03-04 03:58] LABS: MANUAL DIFF YES
[2017-03-04 04:05] LABS: CALCIUM 8.6 mg/dL (8.5-10.1); CREATININE 0.6 mg/dL (0.6-1.0); MAGNESIUM 1.8 mg/dL (1.8-2.4); POTASSIUM 3.8 mmol/L (3.5-5.1)
[2017-03-04 05:14] LABS: ABSOLUTE NEUTROPHILS 6.7 thou/uL (1.4-8.2); ANISOCYTOSIS 2+; POLYCHROMASIA OCCASIONAL; TOTAL CELL COUNT 100
[2017-03-04 19:24] VITALS: BP 122/66
[2017-03-05 07:54] VITALS: BP 133/72
[2017-03-05 11:13] VITALS: BP 133/72
[2017-03-05 19:49] VITALS: BP 123/65
[2017-03-06 06:12] LABS: ABSOLUTE NEUTROPHILS 4.8 thou/uL (1.4-8.2); BASOPHILS 1.2 % (0.0-2.0); EOSINOPHILS 5.2 % (0.0-3.0); HEMATOCRIT 36.1 % (37.0-47.0); HEMOGLOBIN 11.7 gm/dL (12.0-15.0); LYMPHOCYTES 11.1 % (24.0-44.0); MCHC 32.4 g/dL (28.0-37.0); MCV 95.7 fL (80.0-100.0); MONOCYTES 7.1 % (1.0-8.0); PLATELET COUNT 382 thou/uL (150-400); POLYS 75.4 % (36.0-66.0); RBC 3.77 mil/uL (4.20-5.00); RDW 18.7 % (10.5-14.5); WBC 6.4 thou/uL (4.0-11.0)
[2017-03-06 06:13] LABS: MANUAL DIFF NO
[2017-03-06 06:21] LABS: CALCIUM 8.5 mg/dL (8.5-10.1); CREATININE 0.5 mg/dL (0.6-1.0); MAGNESIUM 1.9 mg/dL (1.8-2.4); POTASSIUM 3.3 mmol/L (3.5-5.1)
[2017-03-06 07:30] VITALS: BP 130/83
[2017-03-06 20:08] VITALS: BP 126/64
[2017-03-07 08:15] VITALS: BP 122/65
[2017-03-07 20:33] VITALS: BP 127/68
[2017-03-08 07:51] VITALS: BP 119/76
[2017-03-08 20:38] VITALS: BP 121/54
[2017-03-09 08:40] VITALS: BP 129/67
[2017-03-09 20:11] VITALS: BP 112/68
[2017-03-10 08:00] VITALS: BP 136/72
[2017-03-10 20:03] VITALS: BP 112/70
[2017-03-11 08:00] VITALS: BP 122/68
[2017-03-11 14:40] LABS: CALCIUM 9.3 mg/dL (8.5-10.1); CREATININE 0.8 mg/dL (0.6-1.0); POTASSIUM 3.8 mmol/L (3.5-5.1)
[2017-03-11 19:40] VITALS: BP 123/63
[2017-03-12 03:47] LABS: ABSOLUTE NEUTROPHILS 6.8 thou/uL (1.4-8.2); BASOPHILS 1.2 % (0.0-2.0); EOSINOPHILS 3.2 % (0.0-3.0); HEMATOCRIT 37.1 % (37.0-47.0); HEMOGLOBIN 12.3 gm/dL (12.0-15.0); LYMPHOCYTES 13.9 % (24.0-44.0); MCH 31.9 pg (26.0-34.0); MCHC 33.2 g/dL (28.0-37.0); MONOCYTES 8.7 % (1.0-8.0); PLATELET COUNT 414 thou/uL (150-400); RBC 3.86 mil/uL (4.20-5.00); RDW 19.3 % (10.5-14.5); WBC 9.3 thou/uL (4.0-11.0)
[2017-03-12 03:51] LABS: MANUAL DIFF NO
[2017-03-12 03:52] LABS: CALCIUM 9.1 mg/dL (8.5-10.1); CREATININE 0.7 mg/dL (0.6-1.0); POTASSIUM 4.4 mmol/L (3.5-5.1)
[2017-03-12 08:23] VITALS: BP 134/78
[2017-03-12 20:05] VITALS: BP 135/72
[2017-03-13 07:37] VITALS: BP 128/70
[2017-03-13 20:04] VITALS: BP 132/73
[2017-03-14 08:01] VITALS: BP 145/84
[2017-03-14] MEDS ORDERED: HYDROXYZINE HCL25 M1 PO (11:07)
[2017-03-14] MEDS ORDERED: NYAMYC15 GM TOP (11:07)
[2017-03-14] MEDS ORDERED: ASPIR 8181 MG PO (11:07)
[2017-03-14] MEDS ORDERED: LASIX 40 MG TAB40 M1 PO (11:07)
[2017-03-14] MEDS ORDERED: METHOTREXATE 22.5 MG PO (11:07)
[2017-03-14] MEDS ORDERED: CLOBETASOL PROP60 G3 TOP (11:07)
[2017-03-14] MEDS ORDERED: CLARITIN10 M2 PO (11:07)
[2017-03-14] MEDS ORDERED: ZOFRAN ODT4 MG DISSOLVE (11:07)
[2017-03-14] MEDS ORDERED: ERGOCALCIF50000 UNIT PO (11:07)
[2017-03-14] MEDS ORDERED: THEO-24100 MG PO (11:07)
[2017-03-14] MEDS ORDERED: FOLIC ACID1 MG PO (11:07)
[2017-03-14] MEDS ORDERED: MAGOX 400400 MG PO (11:07)
[2017-03-14] MEDS ORDERED: K-DUR10 MEQ PO (11:07)
[2017-03-14] MEDS ORDERED: PEPCID20 MG PER TUBE (11:07)
[2017-03-14 13:49] VITALS: BP 145/84
[2017-03-14 20:10] VITALS: BP 116/67
[2017-03-15 08:00] VITALS: BP 135/83
[2017-03-15 12:51] VITALS: BP 145/84
== END 2017-03-15 13:46 | disposition home health service (06) | DRG 987 ==
PROVIDERS: Hospitalist; Internal Medicine Endocrinology, Diabetes & Metabolism; Internal Medicine Pulmonary Disease; Nurse Practitioner; Physical Medicine & Rehabilitation; Specialist
PROC: 5A09357 Assistance with Respiratory Ventilation, Less than 24 Consecutive Hours, Continuous Positive Airway Pressure (ICD-10-PCS; principal; 2017-02-17)
PROC: 5A09357 Assistance with Respiratory Ventilation, Less than 24 Consecutive Hours, Continuous Positive Airway Pressure (ICD-10-PCS; 2017-02-27)
PROC: 0TP5X0Z Removal of Drainage Device from Kidney, External Approach (ICD-10-PCS; 2017-03-01)
PROC: 0TP93DZ Removal of Intraluminal Device from Ureter, Percutaneous Approach (ICD-10-PCS; 2017-03-05)
DX: G72.81 Critical illness myopathy (principal); J96.21 Acute and chronic respiratory failure with hypoxia; J96.22 Acute and chronic respiratory failure with hypercapnia; J18.9 Pneumonia, unspecified organism; N39.0 Urinary tract infection, site not specified; N17.9 Acute kidney failure, unspecified; N13.2 Hydronephrosis with renal and ureteral calculous obstruction; E44.0 Moderate protein-calorie malnutrition; Z68.41 Body mass index [BMI] 40.0-44.9, adult; G47.33 Obstructive sleep apnea (adult) (pediatric); I27.20 Pulmonary hypertension, unspecified; R41.82 Altered mental status, unspecified; R53.81 Other malaise; I50.810 Right heart failure, unspecified; E66.01 Morbid (severe) obesity due to excess calories; L40.9 Psoriasis, unspecified; G47.00 Insomnia, unspecified; K59.00 Constipation, unspecified; I27.81 Cor pulmonale (chronic); F32.9 Major depressive disorder, single episode, unspecified; B96.5 Pseudomonas (aeruginosa) (mallei) (pseudomallei) as the cause of diseases classified elsewhere; E55.9 Vitamin D deficiency, unspecified; N18.9 Chronic kidney disease, unspecified; Z88.8 Allergy status to other drugs, medicaments and biological substances; Z90.49 Acquired absence of other specified parts of digestive tract; Z88.1 Allergy status to other antibiotic agents; Z93.6 Other artificial openings of urinary tract status
CPT/HCPCS: 10112; 62110; 62900; 70005

== ENCOUNTER → 2017-05-02 | Outpatient (CLI) | payer OTHER ==
[~2017-05-02] MED LIST changes: +AMBIEN 5 MG TABL5 M1 PO; +CARVEDILOL3.125 MG PO; +COZAAR 25 MG TA25 MG PO; +ERGOCALCIF50000 UNIT PO; +FOLIC ACID1 MG PO; +HYDROXYZINE HCL25 M1 PO; +K-DUR10 MEQ PO; +MAGOX 400400 MG PO; +METHOTREXATE 22.5 MG PO; +NYAMYC15 GM TOP; +POTASSIUM20 PO; +TORSEMIDE20 MG PO; +ZOFRAN ODT4 MG DISSOLVE
[2017-05-02 14:16] LABS: ABSOLUTE NEUTROPHILS 5.2 thou/uL (1.4-8.2); BASOPHILS 1.4 % (0.0-2.0); EOSINOPHILS 3.8 % (0.0-3.0); HEMATOCRIT 44.1 % (37.0-47.0); HEMOGLOBIN 14.2 gm/dL (12.0-15.0); MCH 31.4 pg (26.0-34.0); MCHC 32.3 g/dL (28.0-37.0); MCV 97.2 fL (80.0-100.0); MONOCYTES 5.7 % (1.0-8.0); PLATELET COUNT 362 thou/uL (150-400); POLYS 79.1 % (36.0-66.0); RBC 4.53 mil/uL (4.20-5.00); RDW 17.3 % (10.5-14.5); WBC 6.6 thou/uL (4.0-11.0)
[2017-05-02 14:39] LABS: ANION GAP 1 mmol/L (7-16); BUN 10 mg/dL (7-18); CALCIUM 9.3 mg/dL (8.5-10.1); CHLORIDE 98 mmol/L (98-107); CO2 42 mmol/L (21-32); CREATININE 0.7 mg/dL (0.6-1.0); GLUCOSE 95 mg/dL (74-106); POTASSIUM 3.8 mmol/L (3.5-5.1); SGOT 17 U/L (15-37); SGPT 15 U/L (30-65); SODIUM 141 mmol/L (136-145); TOTAL BILIRUBIN 0.5 mg/dL (<0.1-1.0); TOTAL PROTEIN 7.6 g/dL (6.4-8.2)
[2017-05-02 14:51] LABS: CHOLESTEROL 166 mg/dL (<200); HDL CHOLESTEROL 79 mg/dL (>40); LDL CHOLESTEROL 74 mg/dL (<100); TC:HDL 2.1 Ratio (Not establshd); TRIGLYCERIDE 65 mg/dL (<150); VLDL 13 mg/dL (<40)
[2017-05-03 02:09] LABS: GLYCOHEMOGLOBIN (HGB A1C) 4.8 % (4.8-5.6)
== END ==
LOC: SEN 03-20 08:35
PROVIDERS: Nurse Practitioner Family
DX: N18.4 Chronic kidney disease, stage 4 (severe) (principal); F41.9 Anxiety disorder, unspecified; F32.9 Major depressive disorder, single episode, unspecified; E66.01 Morbid (severe) obesity due to excess calories; I50.9 Heart failure, unspecified; B37.89 Other sites of candidiasis; Z90.49 Acquired absence of other specified parts of digestive tract